=== PATIENT | male | born 1995 | race Caucasian/White ===

== ENCOUNTER 2017-05-11 08:21 | Emergency (ER) | payer SELFPAY ==
[2017-05-11 08:23] VITALS: BP 134/82; PULSE 125; RESP 17; TEMP 37.9; O2SAT 92; BMI 29.0
--- NOTE | 2017-05-11 08:52 | ED.DCSUM_ITS ---
- ER Visit Summary Date of Service: 05/11/17 Chief Complaint: Sore throat History of Present Illness: The patient is a 21 U presenting with 2 weeks of sore throat worse on the right, she was seen at urgent care early on and placed on about a week or 10 days of prednisone, which helped, but when she stopped it less than 1 week ago, the pain gradually has worsened. Had some chills and a mild nonproductive cough, some sinus pressure/pain and some congestion, but mostly throat pain and trouble swallowing because of that. No vomiting. No shortness of breath. Physical Examination: No acute distress. No stridor. Lungs clear. Fever of 100.2 and mildly tachycardic, otherwise vital signs are normal. Posterior oropharynx is erythematous, there is some mild tonsillar swelling on the right, without an obvious abscess. No exudates. Anterior tender right sub-mandibular lymphadenopathy, TMs are normal bilaterally. No posterior lymphadenopathy. No purulent nasal discharge. Mild frontal sinus tenderness. Test Results: n/a Emergency Department Course and Treatment: Will prescribe Augmentin and recommend close outpatient follow-up with ENT if not improving. I do not see anything amenable to aspiration at this time, but it is likely peritonsillar cellulitis, she was on no antibiotic before, will prescribe her Augmentin. Treatment Plan: As above. Ibuprofen given here. Disposition: Discharge home Impression: Peritonsillar cellulitis This note was generated with [employer] dictation software. It may contain incorrect words, spelling, and punctuation that were not noted in review of the chart prior to signing ED Disposition - Plan for ED Patient: Disposition: Home or Assisted Living Chief Complaint: Sore Throat Instructions: ED Peritonsillar Abscess Prescriptions: Amox/Clavulanate Tablet [Augmentin Tablet] 875 mg PO Q12H #20 tab Referrals: Mitchel Spring MD [STAFF PHYSICIAN] - 3-5 Days if not improving
== END 2017-05-11 09:34 | disposition home or self-care (01) ==
PROVIDERS: Emergency Provider Emergency Medicine
DX: J36 Peritonsillar abscess (principal)
CPT/HCPCS: 99282

== ENCOUNTER 2017-05-20 19:35 | Emergency (ER) | payer SELFPAY ==
[2017-05-20 19:36] VITALS: BP 146/56; PULSE 121; RESP 15; TEMP 36.5; BMI 28.2
--- NOTE | 2017-05-20 22:33 | ED.VISSUMM ---
- ER Visit Summary Date of Service: 05/20/17 Chief Complaint: Rash History of Present Illness: The patient is a 21 M presenting with rash ?2 days. Of note patient identifies as a female. She was started on Augmentin on 05/12/2017 for concern for peritonsillar abscess. The symptoms have improved. She has no difficulty swallowing. 2 days ago she noticed a rash on her upper extremities and trunk. No difficulty breathing. She is on Augmentin and has never taken this medication in the past. No other new medications, foods, known cause. Denies fever or other complaints. Physical Examination: Vitals are stable. Patient is afebrile. Alert no acute distress. HEENT exam is unremarkable. Tonsils are symmetric. No exudate. Uvula midline Neck is supple. Lungs are clear and equal bilaterally. Heart is regular rate and rhythm. Abdomen is soft nontender nondistended. Extremities are unremarkable. Skin is warm and dry. Diffuse maculopapular rash. No intraoral lesions No focal neurologic deficit. Remainder of exam is unremarkable. Emergency Department Course and Treatment: She was given Solu-Medrol, Benadryl IV. She has improvement of her symptoms. She is resting comfortably. She is advised to discontinue Augmentin. Advised to follow-up with Dr. Alberts payroll consultant for no doc. She is given a prescription for prednisone. Advised return to ED if worsening complaints. Disposition: Discharge home Impression: Allergic reaction This note was generated with [employer] dictation software. It may contain incorrect words, spelling, and punctuation that were not noted in review of the chart prior to signing ED Disposition - Plan for ED Patient: Chief Complaint: Allergic Reaction Referrals: Care Physician,No Primary [Primary Care Provider] -
[2017-05-20] MEDS: DiphenhydrAMINE 50 MG/ML Syringe 25 MG IV (22:43)
[2017-05-20] MEDS: MethylPREDNISolone 125 MG/2 ML Vial IV (22:43)
--- NOTE | 2017-05-20 23:31 | ED.DEP ---
ED Disposition - Plan for ED Patient: Chief Complaint: Allergic Reaction Instructions: ED Drug React Allergic Prescriptions: Prednisone [Deltasone] 40 mg PO DAILY #10 tablet Referrals: Care Physician,No Primary [Primary Care Provider] - Mitchel Alberts MD [STAFF PHYSICIAN] -
[2017-05-20 23:42] VITALS: BP 104/62; RESP 16
== END 2017-05-20 23:43 | disposition home or self-care (01) ==
LOC: ED 23:35
PROVIDERS: Emergency Provider Emergency Medicine
DX: T78.40XA Allergy, unspecified, initial encounter (principal); R21 Rash and other nonspecific skin eruption
CPT/HCPCS: 96374; 96375; 99284; A4216

== ENCOUNTER 2017-06-27 05:22 | Emergency (ER) | payer SELFPAY ==
[2017-06-27 05:24] VITALS: BP 130/54; PULSE 105; RESP 18; TEMP 36.5; O2SAT 98; BMI 28.2
--- NOTE | 2017-06-27 05:30 | ED.VISSUMM ---
- ER Visit Summary Date of Service: 06/27/17 Chief Complaint: Frostbite History of Present Illness: The patient is a 21 M who presents with complaint of frostbite to the hands. Patient states he initially was in a car taking a ride to get home, but then had to walk the rest of the way for couple hours. He had his hands in his pockets but thought his hands had gotten cold and red. He complained of tingling in the fingers. No other complaints. No complaints of any foot or facial symptoms. Physical Examination: Vital signs: afebrile, hemodynamically stable, no hypoxia on room air General: well nourished, well developed, in no distress Skin: warm, dry, no rash, no pallor; ears, nose, fingers and toes are all warm, pink with brisk capillary refill HEENT: normocephalic and atraumatic; PERRL, EOMI, moist mucous membranes Cardiovascular: regular rate and rhythm without murmurs, no peripheral edema, 2+ pulses all distal extremities Respiratory: No increased work of breathing, lungs are clear to auscultation bilaterally, no rales, rhonchi or wheezing Abdominal: Abdomen is soft, nontender with normoactive bowel sounds, no guarding or rebound, no masses MSK: Moves all extremities, no deformities, normal strength Neuro: Awake and alert, oriented ?4. No facial droop, sensation and motor function intact and symmetric Test Results: [] Emergency Department Course and Treatment: Patient presents complaining of frostbite. Patient has good perfusion to all extremities with neurovascular function intact in the fingers and toes, and extremities are warm. There is no sign of any cold weather injury. He does not appear uncomfortable at all. Was counseled on appropriate clothing for cold weather. Discharged home. Treatment Plan: [] Disposition: [] Impression: Cold hands, resolved; normal medical screening exam This note was generated with [employer] dictation software. It may contain incorrect words, spelling, and punctuation that were not noted in review of the chart prior to signing ED Disposition - Plan for ED Patient: Chief Complaint: Upper Extremity Injury Instructions: ED Hypothermia Prevention Referrals: Care Physician,No Primary [Primary Care Provider] - Clint Harvey MD [[facility]] - Additional Instructions: Your examination shows no concerning findings for cold injury. Please make sure you where appropriate cold weather clothing, including coat, scarf, hat, gloves, socks and boots if you are going to be outside for prolonged periods of time when the weather is cold.
[2017-06-27 05:37] VITALS: BP 130/54; PULSE 105; RESP 18; O2SAT 98
== END 2017-06-27 05:38 | disposition home or self-care (01) ==
PROVIDERS: Emergency Provider Emergency Medicine
DX: T69.8XXA Other specified effects of reduced temperature, initial encounter (principal)
CPT/HCPCS: 99284

== ENCOUNTER 2017-07-25 17:28 | Emergency (ER) | payer SELFPAY ==
[2017-07-25 17:29] VITALS: BP 123/71; PULSE 98; RESP 18; TEMP 36.7; O2SAT 95; BMI 27.9
--- NOTE | 2017-07-25 17:47 | ED.VISSUMM ---
- ER Visit Summary Date of Service: 07/25/17 Chief Complaint: Left-sided abdominal pain History of Present Illness: The patient is a 21 M who is transgender presents with left-sided abdominal pain that he localizes to the left lower quadrant. He reports 5 mushy soft stools yesterday and 2 today. Denies blood or mucus in the stool. Denies maroon or black stool. He denies any vomiting. He does report frequency and there is a family history diabetes. He denies urgency, hematuria or dysuria. He denies any testicular pain or penile discharge. He denies flank pain. There is no history of renal ureterolithiasis. There is no history of trauma. He denies fever, chills night sweats. Please read written note for complete detail. Physical Examination: Vital signs are remarkable for elevated blood pressure of 123/71. HEENT exam is unremarkable. Heart is regular without murmur, gallop or rub. S1 and S2 are normal. Lungs are clear to auscultation with good movement of air bilaterally. Abdomen is soft with tenderness left side without guarding or rebound tenderness. Bowel sounds are present slightly diminished. There is no CVA tenderness noted. There is no evidence of abdominal wall trauma or skin lesions. Lower extremity exam is unremarkable. Test Results: White count is normal. PTT is 117. This was obtained because of complaint of frequency and multiple family members with history diabetes. Emergency Department Course and Treatment: Will treat with Bentyl since he describes the pain as crampy and sharp. A CBC was obtained. Treatment Plan: Appropriate home-going instruction and prescription for Bentyl Disposition: Discharged to home Impression: Left-sided abdominal pain with diarrhea This note was generated with [employer] dictation software. It may contain incorrect words, spelling, and punctuation that were not noted in review of the chart prior to signing ED Disposition - Plan for ED Patient: Disposition: Home or Assisted Living Chief Complaint: Abd Pain Instructions: ED Diarrhea Viral Prescriptions: Dicyclomine HCl [Bentyl] 20 mg PO TIDAC #20 cap Referrals: Care Physician,No Primary [Primary Care Provider] - Derrick Moreira MD [STAFF PHYSICIAN] - Additional Instructions: If you do not improve in 1-2 days follow-up with Dr. Derrick Moreira who you referred to since she did not have a primary care physician.
--- NOTE | 2017-07-25 17:50 | ED.DCSUM_ITS ---
- ER Visit Summary Date of Service: 07/25/17 Chief Complaint: Left-sided abdominal pain History of Present Illness: The patient is a 21 M who is transgender presents with left-sided abdominal pain that he localizes to the left lower quadrant. He reports 5 mushy soft stools yesterday and 2 today. Denies blood or mucus in the stool. Denies maroon or black stool. He denies any vomiting. He does report frequency and there is a family history diabetes. He denies urgency, hematuria or dysuria. He denies any testicular pain or penile discharge. He denies flank pain. There is no history of renal ureterolithiasis. There is no history of trauma. He denies fever, chills night sweats. Please read written note for complete detail. Physical Examination: Vital signs are remarkable for elevated blood pressure of 123/71. HEENT exam is unremarkable. Heart is regular without murmur, gallop or rub. S1 and S2 are normal. Lungs are clear to auscultation with good movement of air bilaterally. Abdomen is soft with tenderness left side without guarding or rebound tenderness. Bowel sounds are present slightly diminished. There is no CVA tenderness noted. There is no evidence of abdominal wall trauma or skin lesions. Lower extremity exam is unremarkable. Test Results: White count is normal. PTT is 117. This was obtained because of complaint of frequency and multiple family members with history diabetes. Emergency Department Course and Treatment: Will treat with Bentyl since he describes the pain as crampy and sharp. A CBC was obtained. Treatment Plan: Appropriate home-going instruction and prescription for Bentyl Disposition: Discharged to home Impression: Left-sided abdominal pain with diarrhea This note was generated with [employer] dictation software. It may contain incorrect words, spelling, and punctuation that were not noted in review of the chart prior to signing ED Disposition - Plan for ED Patient: Disposition: Home or Assisted Living Chief Complaint: Abd Pain Instructions: ED Diarrhea Viral Prescriptions: Dicyclomine HCl [Bentyl] 20 mg PO TIDAC #20 cap Referrals: Care Physician,No Primary [Primary Care Provider] - Derrick oMreira MD [STAFF PHYSICIAN] - Additional Instructions: If you do not improve in 1-2 days follow-up with Dr. Derrick Moreira who you referred to since she did not have a primary care physician.
[2017-07-25] MEDS: Dicyclomine 10 MG Capsule 20 MG PO (18:05)
[2017-07-25 18:10] LABS: Bedside Glucose 117 mg/dL (70-110)
[2017-07-25 19:03] LABS: Absolute Lymphocyte Count 1.25 X10^3/ul (0.83-4.51); Absolute Neutrophil Count 5.5 X10^3/uL (2.0-7.7); Basophil# 0.02 X10^3/uL; Basophil% 0.3 % (0-1); Eosinophil# 0.22 X10^3/uL; Eosinophils% 2.9 % (0-5); Hematocrit 40.4 % (40-54); Hemoglobin 13.5 g/dl (13.0-16.5); Lymphocyte # 1.25 X10^3/ul (4.0); Lymphocyte % 16.4 % (19-41); Mean Corp Hgb Conc 33.4 g/gl (32-36); Mean Corpuscular Hgb 28.4 pg (27.0-32.0); Mean Corpuscular Volume 85.1 fL (80-94); Mean Platelet Vol. 9.5 fl (6.2-12.0); Monocyte# 0.63 X10^3/uL; Monocyte% 8.2 % (0-10); Neutrophil # 5.51 X10^3/uL (2.7-7.7); Neutrophil % 72.1 % (47-70); Platelet Count 282 K/mm3 (150-450); RBC Distribution Width SD 40.3 fl (35.1-43.9); Red Blood Count 4.75 M/mm3 (4.6-6.2); White Blood Count 7.6 K/mm3 (4.4-11.0)
[2017-07-25 19:04] LABS: POSITIVE COUNT NO; POSITIVE DIFFERENTIAL NO; POSITIVE MORPHOLOGY NO
[2017-07-25 19:17] VITALS: BP 122/68; PULSE 78; RESP 16; O2SAT 98
== END 2017-07-25 19:22 | disposition home or self-care (01) ==
PROVIDERS: Emergency Provider Emergency Medicine
DX: R10.9 Unspecified abdominal pain (principal); R19.7 Diarrhea, unspecified
CPT/HCPCS: 82962; 85025; 99283

== ENCOUNTER 2017-11-16 20:01 | Emergency (ER) | payer MEDICAID, SELFPAY ==
[2017-11-16 20:01] VITALS: BP 116/64; PULSE 95; RESP 16; TEMP 36.8; O2SAT 95; BMI 28.1
--- NOTE | 2017-11-16 20:19 | ED.VISSUMM ---
- ER Visit Summary Date of Service: 11/16/17 Chief Complaint: Suicidal thoughts History of Present Illness: The patient is a 21 M who is transgender presents to the emergency department with suicidal thoughts. Patient was recently diagnosed with schizophrenia. He follows up the counseling center. He does have a history of depression. He was on a few psych medications, but has not taken them in over a year. He has not seen a psychiatrist yet to start any medical therapy. He states that over the past 5 days, he has had intrusive voices which are telling to kill himself. He states that he would get a knife and cut his wrists. He has had prior attempt 5 years ago. He does admit to occasional alcohol use and marijuana use but denies any other substance abuse. He denies any current attempt. Physical Examination: Vital signs reviewed General: Well-nourished, well-developed Head: Normocephalic, atraumatic Eyes: Pupils equal and reactive, extraocular muscles intact Neck, supple, no lymphadenopathy Heart: Regular rate and rhythm Respiratory: No distress, clear bilaterally Abdomen: Soft, nontender, nondistended, no peritoneal signs Back: Nontender Extremities: Nontender, no edema, no cords Skin: Normal color no rash Neuro: Alert and oriented, no focal or lateralizing deficits Test Results: [] Emergency Department Course and Treatment: The patient presents with suicidal thoughts. He does have a history of prior attempt. Screening labs were obtained were unremarkable. Tox is positive for marijuana which he did admit to. Patient will undergo crisis evaluation. Disposition is currently pending. Treatment Plan: [] Disposition: Pending Impression: 1. Suicidal ideation This note was generated with [employer] dictation software. It may contain incorrect words, spelling, and punctuation that were not noted in review of the chart prior to signing ED Disposition - Plan for ED Patient: Chief Complaint: Suicidal Referrals: Care Physician,No Primary [Primary Care Provider] -
[2017-11-16 20:32] LABS: Absolute Lymphocyte Count 2.33 X10^3/ul (0.83-4.51); Absolute Neutrophil Count 4.3 X10^3/uL (2.0-7.7); Basophil# 0.02 X10^3/uL; Basophil% 0.3 % (0-1); Eosinophil# 0.17 X10^3/uL; Eosinophils% 2.4 % (0-5); Hematocrit 40.9 % (40-54); Hemoglobin 13.5 g/dl (13.0-16.5); Lymphocyte # 2.33 X10^3/ul (4.0); Lymphocyte % 32.2 % (19-41); Mean Corpuscular Hgb 28.5 pg (27.0-32.0); Mean Corpuscular Volume 86.3 fL (80-94); Mean Platelet Vol. 9.7 fl (6.2-12.0); Monocyte# 0.39 X10^3/uL; Monocyte% 5.4 % (0-10); Neutrophil % 59.4 % (47-70); Platelet Count 279 K/mm3 (150-450); RBC Distribution Width CV 12.6 % (11.6-14.6); Red Blood Count 4.74 M/mm3 (4.6-6.2); White Blood Count 7.2 K/mm3 (4.4-11.0)
[2017-11-16 20:34] LABS: POSITIVE COUNT NO; POSITIVE DIFFERENTIAL NO; POSITIVE MORPHOLOGY NO
[2017-11-16 20:44] LABS: Anion Gap 10 (5-15); BUN 21 mg/dL (7-18); BUN/Creat Ratio 17.1 RATIO (10-20); Calcium,Total 8.8 mg/dL (8.5-10.1); Chloride 106 mmol/L (98-107); Creatinine, Serum 1.23 mg/dL (0.70-1.30); EST Glomerular Filtration Rate 80 mL/min (>60); Est Glom Filt Rate - Afr Amer 97 mL/min (>60); Estimated Creatinine Clearance 93.46 ml/min; Glucose 99 mg/dL (74-106); Potassium 4.1 mmol/L (3.5-5.1); Sodium Level 140 mmol/L (136-145)
[2017-11-16 21:13] LABS: Amphetamine Urine VISTA NEGATIVE (<1000 ng/mL); Barbiturate Urine VISTA NEGATIVE (< 200 ng/mL); Benzodiazepine Urine VISTA NEGATIVE (< 200 ng/mL); Cocaine Urine VISTA NEGATIVE (< 300 ng/mL); Ecstacy Urine VISTA NEGATIVE (< 500 ng/mL); Methadone Urine VISTA NEGATIVE (< 300 ng/mL); PCP Urine VISTA NEGATIVE (< 25 ng/mL); THC Urine VISTA POSITIVE (< 50 ng/mL); Vista UDS pH Range 5
[2017-11-16 22:02] VITALS: PULSE 78; RESP 16; O2SAT 98
[2017-11-17] VITALS (9 sets, daily range): BP systolic 92–111; BP diastolic 53–62; PULSE 51–58; RESP 14–16; TEMP 36.8; O2SAT 97–99
== END 2017-11-17 10:13 ==
PROVIDERS: Emergency Provider Emergency Medicine
DX: R45.851 Suicidal ideations (principal); F20.9 Schizophrenia, unspecified; F32.9 Major depressive disorder, single episode, unspecified; Z72.0 Tobacco use
CPT/HCPCS: 36415; 80048; 80307; 80320; 85025; 99284; G0480

== ENCOUNTER 2018-01-14 17:20 | Emergency (ER) | payer MEDICAID, SELFPAY ==
[2018-01-14 17:22] VITALS: BP 121/71; PULSE 97; RESP 14; TEMP 36.6; O2SAT 98; BMI 30.5
--- NOTE | 2018-01-14 17:44 | ED.DCSUM_ITS ---
- ER Visit Summary Date of Service: 01/14/18 Chief Complaint: Atraumatic left ankle pain History of Present Illness: The patient is a 22 M S male history of underlying psychiatric disorder. Prior appendectomy. 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 Today when he got home he had swelling to the left lateral aspect of his left ankle and discomfort. No fall no trauma. No prior ankle history or prior ankle surgery. No history of DVT or PE. He is on no hormone therapy. He has had no recent travel surgery or mobilization. He denies calf pain also denies shortness of breath or chest pain. No hemoptysis. Physical Examination: Very well-appearing young male dressed as a female. Vital signs stable. Afebrile. Pulse ox 98% on room air no signs of hypoxia. No distress. H EENT exam unremarkable. Neck nontender no lymphadenopathy. Lungs clear to auscultation bilaterally. Heart regular rhythm no murmur. Abdomen soft nontender. He is moving all 4 extremities. Neurovascular intact. His left lateral malleolus left ankle is mildly tender mildly swollen. He has normal dorsi plantarflexion. Achilles tendon is intact. Medial malleolus is nontender. Foot is nontender. With a normal dorsalis pedis pulse. Normal cap refill. Normal touch sensation. No bony deformity. The foot itself is nonswollen. Calf is nontender. No edema. Knee and left hip are nontender. Normal range of motion. Neurologic exam is unremarkable. Test Results: Left ankle x-ray 3 views no acute process read by myself. Emergency Department Course and Treatment: Patient doing well on repeat exam. Treatment Plan: Ice and elevate. Motrin for pain and inflammation. Follow-up if not improving. Disposition: Discharge Impression: Left ankle sprain This note was generated with [employer] dictation software. It may contain incorrect words, spelling, and punctuation that were not noted in review of the chart prior to signing ED Disposition - Plan for ED Patient: Chief Complaint: Lower Extremity Injury Referrals: Care Physician,No Primary [Primary Care Provider] -
--- NOTE | 2018-01-14 17:50 | RAD_ITS ---
STUDY: X-RAY - LEFT ANKLE REASON FOR EXAM: Male, 22 years old. Pain, no injury TECHNIQUE: 3 view(s) of the ankle. COMPARISON: None. FINDINGS: Normal visualized distal tibia and fibula. Normal medial and lateral malleoli. Normal tibiotalar articulation and ankle mortise. Normal visualized talus and calcaneus. The visualized subtalar, talonavicular, calcaneocuboid and tarsal articulations are normal. There is soft tissue swelling over the lateral malleolus. RAD/Ankle min 3 Views IMPRESSION: The osseous structures and articular surfaces appear within normal limits. There is soft tissue swelling over the lateral malleolus. Electronically Signed: Kalpesh Stanton MD at 18:37 EDT , Service support ,
--- NOTE | 2018-01-14 18:08 | ED.DEP ---
ED Disposition - Plan for ED Patient: Disposition: Home or Assisted Living Chief Complaint: Lower Extremity Injury Instructions: ED Sprain Ankle W X Ray Referrals: Mitchel Alberts MD [STAFF PHYSICIAN] - 1 Week if not improving Additional Instructions: Ice and elevate. Motrin for pain and swelling. Follow-up with not improving. Return if a lot worse.
[2018-01-14 18:27] VITALS: PULSE 78; RESP 16; O2SAT 98
== END 2018-01-14 18:29 | disposition home or self-care (01) ==
PROVIDERS: Emergency Provider Emergency Medicine
DX: S93.402A Sprain of unspecified ligament of left ankle, initial encounter (principal); F99 Mental disorder, not otherwise specified; Z72.0 Tobacco use; Z79.899 Other long term (current) drug therapy; X58.XXXA Exposure to other specified factors, initial encounter; Y93.89 Activity, other specified; Y92.89 Other specified places as the place of occurrence of the external cause; Y99.8 Other external cause status
CPT/HCPCS: 73610; 99282

== ENCOUNTER 2018-01-19 09:57 | Emergency (ER) | payer MEDICAID, SELFPAY ==
[2018-01-19 09:59] VITALS: BP 122/74; PULSE 96; RESP 18; TEMP 37.1; O2SAT 96; BMI 30.4
--- NOTE | 2018-01-19 10:18 | ED.DCSUM_ITS ---
- ER Visit Summary Date of Service: 01/19/18 Chief Complaint: Ankle pain, shoulder pain out of psychiatric medications History of Present Illness: The patient is a 22 M who presents after an ankle sprain he was seen in the ED had an unremarkable x-ray. A week later he still has tenderness to his left ankle. He has been walking on it quite a bit at work. He also has right shoulder pain also from overuse at work. No obvious trauma. He ran out of his Abilify and Wellbutrin about 3 or 4 days ago. He has an appointment tomorrow for refill of his medications. Physical Examination: Not appear in acute distress. Moist mucous membranes, no obvious facial deformity No C-spine tenderness supple neck. Regular rate and rhythm without any obvious murmurs Clear lungs bilaterally speaking in full sentences without any obvious respiratory distress. Biological female with breasts. Abdomen soft and nontender no guarding or rebound There is tenderness over the left lateral malleolus, however full range of motion and is able to bear weight. Patient also has some right shoulder ten derness worse with abduction greater than 90 degrees. Full range of motion however and otherwise normal exam. Skin does not show any obvious rashes or lesions, no trauma. Alert oriented ?3 with no gross focal deficit Emergency Department Course and Treatment: Patient has tendinitis and an ankle sprain, his symptoms may be worse by the fact that he is withdrawing from Wellbutrin and Abilify. I will give him 1 dose in the emergency department and he has an appointment tomorrow. I will also place him on NSAIDs. Discharge stable condition Impression: Tendinitis right shoulder Left ankle sprain follow-up Medication refill This note was generated with [employer] dictation software. It may contain incorrect words, spelling, and punctuation that were not noted in review of the chart prior to signing ED Disposition - Plan for ED Patient: Disposition: Home or Assisted Living Chief Complaint: Other, Pain/Inj Instructions: ED Tendinitis Rotator Cuff, ED Sprain Ankle No X Ray Prescriptions: Naproxen [Naprosyn] 500 mg PO BID PRN #20 tab Referrals: Care Physician,No Primary [Primary Care Provider] - 3-5 Days
[2018-01-19] MEDS: buPROPion (SR) 100 MG TABLET.SA 200 MG PO (10:31)
[2018-01-19] MEDS: ARIPiprazole 5 MG Tablet PO (10:31)
[2018-01-19 10:46] VITALS: RESP 18; O2SAT 96
== END 2018-01-19 10:46 | disposition home or self-care (01) ==
PROVIDERS: Emergency Provider Emergency Medicine
DX: M75.91 Shoulder lesion, unspecified, right shoulder (principal); S93.402D Sprain of unspecified ligament of left ankle, subsequent encounter; Z76.0 Encounter for issue of repeat prescription; Z79.899 Other long term (current) drug therapy; X58.XXXD Exposure to other specified factors, subsequent encounter
CPT/HCPCS: 99284

== ENCOUNTER 2018-07-31 01:13 | Emergency (ER) | payer MEDICAID, SELFPAY ==
[2018-07-31 01:15] VITALS: BP 125/71; PULSE 105; RESP 13; TEMP 36.7; O2SAT 98; BMI 28.0
--- NOTE | 2018-07-31 01:22 | RAD_ITS ---
STUDY: X-RAY - RIGHT WRIST REASON FOR EXAM: Male, 22 years old. Right-sided wrist pain after punching a telephone pole. TECHNIQUE: 3 view(s) of the wrist were obtained. COMPARISON: Radiographs of the right hand dated July 31, 2018. FINDINGS: Normal visualized distal radius and ulna. Normal radiocarpal articulation. There is a negative ulnar variance. Normal carpal bones. Normal carpal articulations. Normal carpometacarpal articulation of the thumb. Normal second through fifth carpometacarpal articulations. Normal visualized metacarpal bones. There is mild soft tissue swelling. There is deformity of the fifth metacarpal probably related to old fracture. RAD/Wrist min 3 Views IMPRESSION: No definite evidence for acute fracture. If there is still clinical concern for acute fracture, follow-up radiographs in 7-10 days maybe helpful in evaluating a healing radiographically occult fracture. Electronically Signed: Tia Burns MD at 1:55 EDT , Service support ,
--- NOTE | 2018-07-31 01:23 | RAD_ITS ---
STUDY: X-RAY - RIGHT HAND REASON FOR EXAM: Male, 22 years old. Right-sided hand pain after punching a pole. TECHNIQUE: 3 view(s) of the hand. COMPARISON: Radiographs of the right wrist dated July 31, 2018. FINDINGS: Normal radiocarpal articulation. There is a negative ulnar variant of the distal radioulnar articulation. Normal visualized carpal bones. Normal carpal articulations Normal carpometacarpal articulation of the thumb. Normal second through fifth carpometacarpal joints. There is deformity of the fifth metacarpal probably related to old fracture. Normal metacarpophalangeal joint of the thumb. Normal interphalangeal joint of the thumb. Normal proximal and distal phalanges of the thumb. Normal metacarpophalangeal joints of the second through fifth fingers. Normal proximal and distal interphalangeal joints of the second through fifth fingers. Normal phalanges of the second through fifth fingers. There is soft tissue swelling. RAD/Hand Min 3 Views IMPRESSION: 1. No evidence for acute fracture. 2. Probably old fracture of the fifth metacarpal. 3. Soft tissue swelling. 4. If there is still clinical concern for acute fracture, follow-up radiographs in 7-10 days maybe helpful in evaluating a healing radiographically occult fracture. Electronically Signed: Tia Burns MD at 1:57 EDT , Service support ,
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
[2018-07-31] MEDS: Naproxen 500 MG Tablet PO (01:33)
== END 2018-07-31 02:19 | disposition home or self-care (01) ==
PROVIDERS: Emergency Provider Emergency Medicine
DX: S63.501A Unspecified sprain of right wrist, initial encounter (principal); S60.221A Contusion of right hand, initial encounter; S60.511A Abrasion of right hand, initial encounter; W22.8XXA Striking against or struck by other objects, initial encounter; Y93.9 Activity, unspecified; Y92.9 Unspecified place or not applicable
CPT/HCPCS: 73110; 73130; 99283

== ENCOUNTER 2019-02-17 21:39 | Emergency (ER) | payer SELFPAY ==
[2019-02-17 21:41] VITALS: BP 122/74; PULSE 99; RESP 18; TEMP 36.4; O2SAT 97; BMI 25.7
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
== END 2019-02-17 22:32 | disposition home or self-care (01) ==
PROVIDERS: Emergency Provider Emergency Medicine; Family Provider Nurse Practitioner Primary Care; PCP Nurse Practitioner Primary Care
DX: S50.812A Abrasion of left forearm, initial encounter (principal); W45.8XXA Other foreign body or object entering through skin, initial encounter; Y93.9 Activity, unspecified; Y92.79 Other farm location as the place of occurrence of the external cause; Y99.9 Unspecified external cause status; Z88.1 Allergy status to other antibiotic agents; Z88.0 Allergy status to penicillin; F17.200 Nicotine dependence, unspecified, uncomplicated
CPT/HCPCS: 99282

== ENCOUNTER 2019-03-21 12:56 | Emergency (ER) | payer MEDICAID, SELFPAY ==
[2019-03-21 12:57] VITALS: BP 104/57; PULSE 77; RESP 18; TEMP 36.6; O2SAT 98; BMI 28.8
--- NOTE | 2019-03-21 13:16 | RAD_ITS ---
STUDY: X-RAY - RIGHT SHOULDER REASON FOR EXAM: Male, 23 years old. SHOULDER PAIN AFTER BOWLING TECHNIQUE: 3 view(s) of the shoulder. COMPARISON: None. FINDINGS: Normal glenohumeral articulation. Normal acromioclavicular joint. Normal acromion. Normal humeral head and visualized proximal humerus. The soft tissue structures are unremarkable. Normal visualized pulmonary apex. RAD/Shoulder min 2 Views IMPRESSION: Normal x-ray examination of the shoulder. Electronically Signed: Markus Lowery MD (Bro[place]) at 13:52 EST , Service support ,
[2019-03-21] MEDS: Naproxen 500 MG Tablet PO (13:28)
--- NOTE | 2019-03-21 13:48 | ED.VIS.GEN ---
History of Present Illness Chief Complaint: Upper Extremity Injury Informant: Patient Onset: Weeks - Onset 2 weeks ago Context: Sudden Onset Timing: Continuous, Waxes and wanes Quality: Worse with abduction Location: Right shoulder region Current Severity: Mild Maximum Severity: Severe Worsened by: Movement especially abduction past 90 degrees Relieved by: Rest Associated Symptoms: No associated symptoms Narrative: Patient is a 23-year-old [id number] male who presents with atraumatic right shoulder pain for the past 2 weeks. Movement especially abduction causes increased pain. He denies cardiac respiratory symptoms. He denies paresthesia, anesthesia or motor weakness. There is no prior history of trauma to the shoulder. There is no history of autoimmune disorder. Patient states he has not taken anything for the pain. Prior similar symptoms: No Recent Illness/Hospitalization: No - Past Medical History (1) No significant past medical history Status: Acute Past Medical History - Allergies and Home Meds Allergies/Adverse Reactions: Allergies amoxicillin [From Augmentin] Allergy (Verified 03/21/19 13:00) Rash clavulanic acid [From Augmentin] Allergy (Verified 03/21/19 13:00) Rash Primary Care Physician: Mercedes Cline NP-C [Primary Care Provider] - Prior records reviewed: No Past Medical History: None Surgical History: no surgical history Lives: Alone Smoking Status: Current every day smoker Drugs: None Review of Systems General: Denies: Chills, Fever, Malaise, Sweats Cardiovascular: Denies: Chest pain, Palpitations Respiratory: Denies: Dyspnea, Cough, Dyspnea on exertion Gastrointestinal: Denies: Nausea, Vomiting Musculoskeletal: Reports: Extremity Pain. Denies: Myalgias, Arthralgias, Neck pain, Back pain, Swelling Skin: Denies: Rash, Wounds Neurological: Denies: Weakness, Parasthesia, Numbness Hematologic: Denies: Easy bruising, Easy bleeding Physical Exam Vital Signs/Narrative: Vital Signs Temp Pulse Resp BP Pulse Ox 03/21/19 12:57 97.8 F 77 18 104/57 L 98 Inital Vital Signs reviewed: Yes General: Well nourished, Well developed, No Acute Distress Head: Normocephalic, Atraumatic Eyes: Perrl, EOMI. Negative for: Pale conjunctiva, Scleral icterus Cardiovascular: Regular rate, Regular rhythm, No murmurs, Normal S1, Normal S2 Respiratory: No distress, CTA bilaterally, Chest nontender Back: Nontender, Normal Inspection Extremities: No edema, - - There is pain palpation of the right shoulder. Abduction past 90 degrees causes significant discomfort. Axillary, median, radial and ulnar function intact. Biceps, brachialis and triceps reflex are 2+. Radial pulses palpable. Deep tendon reflex and pulse is symmetric.. Negative for: Nontender Skin: Normal color, No rash, No Trauma. Negative for: Cyanosis, Diaphoresis, Jaundice, - Neurological: Alert, Oriented x3, Cranial nerves II-XII grossly intact, Normal Strength, Normal Sensation, Normal DTR Psychological: Normal affect Diagnostic/Tx/Re-eval Chest X-Ray - ED: Read by ED Physician, - - View x-ray of the right shoulder was obtained. There is no evidence of fracture, subluxation or dislocation. There is no calcification supraspinatus tendon. There was no arthritic changes noted. Interpreted at 1346 03/21/19 13:16 Shoulder min 2 Views [RAD] Stat - Medical Decision Making There was obtained to evaluate for occult injury, supraspinatus calcification. If no abnormality noted patient will be treated for impingement syndrome. There is no contraindication to NSAIDs. ED Disposition - Plan for ED Patient: Disposition: Home or Assisted Living Diagnosis: Impingement syndrome of right shoulder Instructions: Shoulder Impingement Syndrome Prescriptions: Naproxen [Naprosyn] 500 mg PO BID #14 tab Transmission Status: Pending to [facility] [place] [facility] Referrals: HarveylogMercedes burgos NP-C [Primary Care Provider] - 3-5 Days if not improving
[2019-03-21 14:05] VITALS: RESP 14
== END 2019-03-21 14:07 | disposition home or self-care (01) ==
PROVIDERS: Emergency Provider Emergency Medicine; Family Provider Nurse Practitioner Primary Care; PCP Nurse Practitioner Primary Care
DX: M75.41 Impingement syndrome of right shoulder (principal); Z88.1 Allergy status to other antibiotic agents; Z88.0 Allergy status to penicillin; F17.200 Nicotine dependence, unspecified, uncomplicated
CPT/HCPCS: 73030; 99283

== ENCOUNTER 2019-06-08 17:55 | Emergency (ER) | payer MEDICAID, SELFPAY ==
[2019-06-08 17:56] VITALS: BP 100/63; PULSE 103; RESP 18; TEMP 36.3; O2SAT 97; BMI 25.3
--- NOTE | 2019-06-08 18:09 | RAD_ITS ---
STUDY: X-RAY CHEST REASON FOR EXAM: Male, 23 years old. FLU LIKE SX X 4 DAYS, COUGH, SOB TECHNIQUE: Frontal and lateral views COMPARISON: None. FINDINGS: The lungs are clear and expanded. There is no demonstrated pleural abnormality. Normal size heart. Normal mediastinum and toni. Normal visualized pulmonary arteries. Normal visualized aortic arch and descending thoracic aorta. Normal visualized thoracic spine. Normal visualized ribs, clavicles, and shoulders. There is no demonstrated abnormality of the visualized soft tissue structures of the upper abdomen. RAD/Chest PA and Lateral IMPRESSION: Normal x-ray examination of the chest. Electronically Signed: Yaron Reddy DO at 19:22 EDT Tel [phone], Service support ,
--- NOTE | 2019-06-08 18:15 | ED.VIS.GEN ---
History of Present Illness Chief Complaint: Shortness of Breath Informant: Patient Onset: Days Context: Gradual Onset Timing: Continuous Current Severity: Moderate Maximum Severity: Moderate Narrative: The patient is a 23-year-old male with no significant medical history the presents to the emergency department cough, shortness of breath, and upper respiratory symptoms. Patient had symptoms since last . She states that a coworker may have had influenza. She states that she has had some dyspnea, myalgias, arthralgias. She has no history of underlying lung disease. She thinks that she is had low-grade fevers. She denies any other systemic complaints. Prior similar symptoms: No Recent Illness/Hospitalization: No Past Medical History - Allergies and Home Meds Allergies/Adverse Reactions: Allergies amoxicillin [From Augmentin] Allergy (Verified 06/08/19 17:56) Rash clavulanic acid [From Augmentin] Allergy (Verified 06/08/19 17:56) Rash Primary Care Physician: Mercedes Cline NP-C [Primary Care Provider] - Prior records reviewed: Yes Past Medical History: None Surgical History: no surgical history Smoking Status: Current every day smoker Review of Systems General: Reports: Chills. Denies: Fever, Sweats Eyes: Denies: Visual changes - bilaterally, Diplopia ENT: Denies: Rhinorrhea, Sore throat Cardiovascular: Denies: Chest pain, Palpitations Respiratory: Reports: Cough. Denies: Dyspnea, Dyspnea on exertion Gastrointestinal: Denies: Abdominal pain, Nausea, Vomiting, Diarrhea, Melena, Hematochezia Genitourinary: Denies: Dysuria, Hematuria, Frequency Musculoskeletal: Denies: Back pain, Extremity Pain Skin: Denies: Rash, Wounds Neurological: Denies: Headache, Weakness, Numbness Physical Exam Vital Signs/Narrative: Vital Signs Temp Pulse Resp BP Pulse Ox 06/08/19 17:56 97.3 F L 103 H 18 100/63 97 Inital Vital Signs reviewed: Yes General: Well nourished, Well developed, No Acute Distress Head: Normocephalic, Atraumatic Eyes: Perrl, EOMI ENT: Moist mucous membranes, No rhinorrhea Neck: Supple, Nontender Cardiovascular: Regular rate, Regular rhythm, No murmurs Respiratory: No distress, CTA bilaterally, Chest nontender Abdomen: Soft, Nontender, Nondistended, Normal bowel sounds Back: Nontender, Normal Inspection Extremities: Nontender, No edema Skin: Normal color, No rash Neurological: Alert, Oriented x3, Cranial nerves II-XII grossly intact, Normal Strength, Normal Sensation Psychological: Normal affect, Normal Mood Diagnostic/Tx/Re-eval Clinical Impression(s) from Imaging Studies Chest X-Ray 06/08/19 18:09 IMPRESSION: Normal x-ray examination of the chest. Electronically Signed: Yaron Reddy DO at 19:22 EDT Tel [phone], Service support , - Medical Decision Making The patient has no fever, hypoxia, or tachypnea. Lungs are clear. Influenza and strep testing were obtained were negative. Chest x-ray shows no evidence of infiltrative process. The symptoms do seem viral in nature. Patient has had symptoms for 5 days now. She is outside the window for Tamiflu. She was counseled on supportive care and will be discharged home. Impression 1. Viral upper respiratory infection ED Disposition - Plan for ED Patient: Instructions: URI, Viral, No Abx (Adult) Referrals: PodlogMercedes burgos NP-C [Primary Care Provider] -
[2019-06-08 20:09] VITALS: PULSE 90; RESP 16; O2SAT 99
== END 2019-06-08 20:14 | disposition home or self-care (01) ==
LOC: ED 19:02
PROVIDERS: Emergency Provider Emergency Medicine; PCP Nurse Practitioner Primary Care
DX: J06.9 Acute upper respiratory infection, unspecified (principal); F17.200 Nicotine dependence, unspecified, uncomplicated
CPT/HCPCS: 71046; 87804; 87880; 99282

== ENCOUNTER 2019-08-13 20:41 | Emergency (ER) | payer MEDICAID, SELFPAY ==
[2019-08-13 20:43] VITALS: BP 146/78; PULSE 90; RESP 18; TEMP 36.8; O2SAT 97; BMI 23.9
[2019-08-13 21:30] VITALS: BP 120/65; PULSE 82; PULSE 93; RESP 16; RESP 18; TEMP 36.8; O2SAT 97
[2019-08-13 21:31] VITALS: O2SAT 97
[2019-08-13 22:00] VITALS: BP 113/69; PULSE 72; RESP 24; TEMP 36.5; O2SAT 97
--- NOTE | 2019-08-13 22:21 | ED.VISSUMM ---
- ER Visit Summary Date of Service: 08/13/19 Chief Complaint: Fever and cough History of Present Illness: The patient is a 23 M who presents with a fever and cough that began today. Patient states he is coughing up some light green sputum. Patient states his fever was up to 101.3 at home. Patient admits to a sore throat. Patient states he feels short of breath at times. Patient states he feels like he has a softball in the middle of his chest. Patient admits to some nausea and vomiting. Patient admits to some neck pain and back pain. Patient also admits to a headache. Patient states he had similar symptoms at the end of May and was tested for COVID at that time. Patient states it was negative. Physical Examination: Vital signs are stable. Patient is afebrile here. Patient is in no acute distress. Oral mucosa is pink and moist. Oropharynx is mildly erythematous. There is no exudate. Neck is supple. Trachea is midline. There is some mild anterior cervical lymphadenopathy. Heart was regular rate and rhythm. Lungs are clear and equal bilaterally. Abdomen is soft. Bowel sounds are normal. There is no tenderness. Extremities are intact. There is no calf tenderness or edema. Cranial nerves II through XII are intact. There are no focal motor or sensory deficits. Test Results: Portable chest x-ray was obtained. There is no acute cardiopulmonary process. This was interpreted by the radiologist and myself. Rapid strep was negative. RSV was negative. Influenza swabs were negative. Emergency Department Course and Treatment: Patient was given IV fluids here. Patient is feeling better on reevaluation. Patient was advised of his findings. Patient was instructed to drink plenty of fluids. Patient was instructed to take Tylenol or ibuprofen as needed for pain or fevers. Patient was instructed to keep to himself for the next 2 weeks. Patient was instructed to follow-up with his primary care physician in 5 to 7 days. Patient understood and was agreeable with the plan. All questions were answered. Disposition: Discharge home Impression: Viral upper respiratory infection This note was generated with [employer] software. It may contain incorrect words, spelling, and punctuation that were not noted in review of the chart prior to signing ED Disposition - Plan for ED Patient: Disposition: Home or Assisted Living Diagnosis: Viral upper respiratory infection Instructions: ED URI Viral Referrals: Harveylogar,Mercedes, [employer] OPERATOR-C [Primary Care Provider] - 5-7 Days
[2019-08-13] MEDS: 0.9% Normal Saline 1,000 ML 1000 ML IV (22:39)
--- NOTE | 2019-08-13 22:40 | RAD_ITS ---
STUDY: X-RAY CHEST REASON FOR EXAM: Male, 23 years old. FEVER, COUGH,SORE THROAT,SOB TECHNIQUE: Single AP portable view of the chest. COMPARISON: 06/08/2019. FINDINGS: The lungs are clear and expanded. There is no demonstrated pleural abnormality. Normal size heart. Normal mediastinum and toni. Normal visualized pulmonary arteries. Normal visualized aortic arch and descending thoracic aorta. Normal visualized thoracic spine. Normal visualized ribs, clavicles, and shoulders. There is no demonstrated abnormality of the visualized soft tissue structures of the upper abdomen. RAD/Chest 1 View (Portable) IMPRESSION: Normal x-ray examination of the chest. Electronically Signed: Victorino Jones MD at 23:10 EDT , Service support ,
[2019-08-13 23:00] VITALS: BP 114/61; PULSE 75; RESP 15; TEMP 37.4; O2SAT 99
[2019-08-13 23:11] VITALS: BP 114/61; PULSE 100; RESP 20; O2SAT 99
[2019-08-14] VITALS: BP 116/60; PULSE 64; RESP 16; TEMP 37.5; O2SAT 100
--- OUTSIDE RECORDS SUMMARY | 2020-01-05 15:45 | XMS RPT_ITS | CCD ---
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 route twice daily. venlafaxine ER (EFFEXOR XR) 75 mg 24 hr capsule Take 75 mg b y mouth once daily. traZODone (DESYREL) 50 mg tablet Take 50 mg by mouth daily a t bedtime. escitalopram oxalate (LEXAPRO) 10 mg tablet Take 1 tablet by mouth once daily. FAMILY HISTORY Problem Relation Age of Onset - other (type II diabetes [Other]) Father - other (MVP [Other]) Maternal Grandmother - Heart Unknown great g-pa Social History Tobacco Use - Smoking status: Passive Smoke Exposure - Never Smoker - Smokeless tobacco: Never Used - Tobacco comment: mom smokes inside Substance Use Topics - Alcohol use: No - Drug use: No ASSESSMENT/PLAN: 1. Cough - ICD9: 786.2, ICD10: R05 (primary diagnosis) - XR CHEST 2V FRONTAL/LAT Impression: no acute process. - MUCINEX 600 MG TABLET, EXTENDED RELEASE - BENZONATATE 100 MG CAPSULE 2. Fever, unspecified fever cause - ICD9: 780.60, ICD10: R50 .9 3. Nausea and vomiting, intractability of vomiting not speci fied, unspecified vomiting type - ICD9: 787.01, ICD10: R11.2 - FLORAJEN BIFIDOBLEND 460 MG (9-1 BILLION CELL) CAPSULE - ONDANSETRON 4 MG DISINTEGRATING TABLET Reviewed red flag SANDS acute abd/dehydration. The patient is instructed to return or seek emergency treatm ent if symptoms become worse or with any acute change in condition. The patient verbalizes understanding and is in agreement wit h plan of care. Yelena Chan CNP cnov on 2019-02-02 CNOV Office Visit (UCWSTR) Normal 02-03-20 19 [facility] GLANCY,ALEXANDER Ferrera ([id number]) 1995 [address] [place] Date Time Provider Department ([id number]) 02/02/19 5:15 PM YELENA CHAN [facility] During your visit today, we recorded the following informati on about you: Temperature Pulse Respiration Blood pressure 97.9 degrees 78/minute 16/minute 104/78 Weight 82.4 kg Yelena Chan APRN.ELMIRA 02/02/2019 7:04 PM Signed Subjective HPI Pt presents with c/o intermittent fevers, runny nose and cou gh x 7 days. tmax 101.0 2 days ago. C/O nausea and vomiting x several days. 2-3 episodes of vomiting/day. Has been pushing fluids. Appetite is poor and any food causes vomiting. Has not taken any OTC medications. Several days ago cough became more frequent, dry, nonproduct david. +coughing fits with occasional wheezing. No hx asthma, smoking. Denies chills, myalgias, dyspnea, increased WOB, abd p ain, diarrhea, UTI sx, recent travel. Exposed to sick contacts at work. Review of Systems Constitutional: Negative for chills and fever. HENT: Positive for congestion. Negative for ear discharge, e ar pain, sinus pain, sore throat and tinnitus. Respiratory: Positive for cough. Negative for sp utum production, shortness of breath and wheezing. Cardiovascular: Negative for chest pain. Gastrointestinal: Positive for nausea and vomiting. Negative for abdominal pain, constipation and diarrhea. Genitourinary: Negative. Musculoskeletal: Negative for myalgias. Skin: Negative for rash. Neurological: Negative for headaches. Objective Physical Exam Constitutional: He is oriented to person, place, and time and well-developed, well-nourished, and in no distress. No distress. HENT: Head: Normocephalic. Right Ear: Hearing, tympanic membrane, external ear and ear canal normal. Left Ear: Hearing, tympanic membrane, external ear and ear c anal normal. Nose: Nose normal. Right sinus exhibits no maxillary s inus tenderness and no frontal sinus tenderness. Le ft sinus exhibits no maxillary sinus tenderness and no frontal sinus tenderness. Mouth/Throat: Uvula is midline, oropharynx is clear and mois t and mucous membranes are normal. No oropharyngeal e xudate, posterior oropharyngeal edema, posterior oropharyngeal erythema or tonsillar abscesses. Eyes: Pupils are equal, round, and react david to light. Conjunctivae are normal. Right eye exhibits no discharge. Left eye exhibits no discha rge. Neck: Neck supple. Cardiovascular: Normal rate, regular rhythm and normal heart sounds. Exam reveals no gallop and no friction rub. No murmur heard. Pulmonary/Chest: Effort normal and breath sounds sangeeta l. No accessory muscle usage. No tachypnea. No resp iratory distress. He has no decreased breath sounds (CTA, good air movement throughout, no cough noted during exam.). He has no wheezes. He has no rhonchi. He has no rales. Abdominal: Soft. Bowel sounds are normal. He exh ibits no distension. There is no tenderness. There is no rigidity, no rebound, no guarding , no CVA tenderness, no tenderness at McBurney's point and negative M urphy's sign. Lymphadenopathy: He has no cervical adenopathy. Neurological: He is alert and oriented to person, place, and time. Skin: Skin is warm and dry. He is not diaphoretic. BP 104/78 Pulse 78 Temp 36.6 ?C (97.9 ?F) (Tympanic) R soy 16 Wt 82.4 kg (181 lb 9.6 oz) SpO2 97% .Patient presents with: Cough: cough and fever x 1 week PAST MEDICAL HISTORY Diagnosis Date - Depression 2012 Dr Nicole and Sosa Tejeda - [facility] - [facility] - PAST MEDICAL HISTORY OF 02/08/10 normal color vision - Right hand fracture Dr Allison PAST SURGICAL HISTORY Procedure Laterality Date - APPENDECTOMY 06/2009 [facility] - PAST SURGICAL HISTORY OF 2005 right forearm laceration ALLERGIES Augmentin [Amoxicillin-Pot Clavulanate] MEDICATIONS bifidobacteri bifid.and longum (FLORAJEN BIFIDOBLEND) 460 mg (9-1 bill.cell) cap Take 1 capsule by mouth once daily. ondansetron orally disintegrating (ZOFRA N ODT) 4 mg disintegrating tablet Take 1 tablet by mouth every 8 hours as needed. guaiFENesin (MUCINEX) 600 mg 12 hr table t Take 2 tablets by mouth twice daily. benzonatate (TESSALON PERLES) 100 mg capsule Take 1 capsule by mouth three times daily as needed. guaiFENesin (MUCINEX) 600 mg 12 hr table t Take 2 tablets by mouth twice daily. ibuprofen (MOTRIN) 600 mg ta blet Take 1 tablet by mouth every 6 hours as needed for Pain. benzonatate (TESSALON PERLES) 100 mg capsule Take 1-2 capsul es tid prn albuterol HFA (PROAIR HFA) 90 mcg/actuation inhaler Inhale 2 Puffs as instructed every 4 hours as needed. albuterol HFA (PROVENTIL HFA, VENTOLIN HFA) 90 m cg/actuation inhaler Inhale 2 Puffs as instructed every 4 hours as needed. hydrocortisone (ANUSOL-HC) 2.5 % rectal cream 1 applicatio n by RECTAL route twice daily. venlafaxine ER (EFFEXOR XR) 75 mg 24 hr capsule Take 75 mg by mouth once daily. traZODone (DESYREL) 50 mg tablet Take 50 mg by mouth daily a t bedtime. escitalopram oxalate (LEXAPRO) 10 mg tab let Take 1 tablet by mouth once daily. FAMILY HISTORY Problem Relation Age of Onset - other (type II diabetes [Other]) Father - other (MVP [Other]) Maternal Grandmother - Heart Unknown great g-pa Social History Tobacco Use - Smoking status: Passive Smoke Exposure - Never Smoker - Smokeless tobacco: Never Used - Tobacco comment: mom smokes inside Substance Use Topics - Alcohol use: No - Drug use: No ASSESSMENT/PLAN: 1. Cough - ICD9: 786.2, ICD10: R05 (primary diagnosis) - XR CHEST 2V FRONTAL/LAT Impression: no acute process. - MUCINEX 600 MG TABLET, EXTENDED RELEASE - BENZONATATE 100 MG CAPSULE 2. Fever, unspecified fever cause - ICD9: 780.60, ICD10: R50 .9 3. Nausea and vomiting, intractability of vomiti ng not specified, unspecified vomiting type - ICD9: 787.01, ICD10: R11.2 - FLORAJEN BIFIDOBLEND 460 MG (9-1 BILLION CELL) CAPSULE - ONDANSETRON 4 MG DISINTEGRATING TABLET Reviewed red flag SANDS acute abd/dehydration. The patient is instructed to return or seek emergency pamela tment if symptoms become worse or with any acute change in condition. The patient verbalizes understanding and is in agreement w ith plan of care. Yelena Chan, BUSINESS MGR Referring Provider: SELF [[id number]] Allergies As of Date: 02/02/2019 Noted Allergy Reaction AUGMENTIN (AMOXICILLIN-POT CLAVUL*07/19/2018 2 - Rash Date Reviewed: 02/02/2019 Reviewed by: Marissa Devries LPN - Fully Assessed Reason for Visit: Cough [28] Cmt: cough and fever x 1 week Primary Visit Diagnosis:Cough [R05] Other Visit Diagnoses:Fever, unspecified fever cause [R50.9] Nausea and vomiting, intractability of vomiting not specified, unspecified vomiting type [R11.2] Order(s):XR CHEST 2V FRONTAL/LAT [[id number]] Order #: [id number] FUTURE bifidobacteri bifid.and longum (FLORAJEN BIFIDOBLEND) 460 mg (9-1 bill.cell) capTake 1 capsule by mouth once daily.Disp: 30 capsuleRfl: 1 ondansetron orally disintegrating (ZOFRAN ODT) 4 mg disinteg rating tabletTake 1 tablet by mouth every 8 hours as needed.Disp: 1 2 tabletRfl: 0 guaiFENesin (MUCINEX) 600 mg 12 hr tabletTake 2 tablets by m outh twice daily.Disp: 30 tabletRfl: 0 benzonatate (TESSALON PERLES) 100 mg capsuleTake 1 capsule b y mouth three times daily as needed.Disp: 40 capsuleRfl: 0 Prescriptions as of 02/02/2019 Sig: FLORAJEN BIFIDOBLEND 460 MG (* Take 1 capsule by mouth once * ONDANSETRON 4 MG DISINTEGRATI* Take 1 tablet by mouth every * MUCINEX 600 MG TABLET, EXTEND* Take 2 tablets by mouth twice * BENZONATATE 100 MG CAPSULE Take 1 capsule by mouth three* GUAIFENESIN ER 600 MG TABLET,* Take 2 tablets by mouth twice * Patient not taking: Reported on 02/02/2019 IBUPROFEN 600 MG TABLET Take 1 tablet by mouth every * Patient not taking: Reported on 02/02/2019 BENZONATATE 100 MG CAPSULE Take 1-2 capsules tid prn Patient not taking: Reported on 02/02/2019 ALBUTEROL SULFATE HFA 90 MCG/* Inhale 2 Puffs as instructed * Patient not taking: Reported on 02/02/2019 ALBUTEROL SULFATE HFA 90 MCG/* Inhale 2 Puffs as instructed * Patient not taking: Reported on 07/19/2018 HYDROCORTISONE 2.5 % TOPICAL * 1 application by RECTAL route * VENLAFAXINE ER 75 MG CAPSULE,* Take 75 mg by mouth once joseph * TRAZODONE 50 MG TABLET Take 50 mg by mouth daily at * ESCITALOPRAM 10 MG TABLET Take 1 tablet by mouth once d* Problem List As Of Date 02/02/2019 Noted Resolved Fracture of fifth metacarpal bone of right hand*04/06/2013 Prescriptions ordered this encounter Disp Refills Start End FLORAJEN BIFIDOBLEND 460 MG (9-1 BUCK* 30 c* 1 02/02/2019 Route: ORAL Sig: Take 1 capsule by mouth once daily. ONDANSETRON 4 MG DISINTEGRATING TABL* 12 t* 0 02/02/2019 Route: ORAL Sig: Take 1 tablet by mouth every 8 hours as needed. MUCINEX 600 MG TABLET, EXTENDED RELE* 30 t* 0 02/02/2019 Route: ORAL Sig: Take 2 tablets by mouth twice daily. BENZONATATE 100 MG CAPSULE 40 c* 0 02/02/2019 Route: ORAL Sig: Take 1 capsule by mouth three times daily as needed. Letter Text Letter Text Encounter Status:Closed by YELENA CHAN CNP on 02/02 xr hand minimum 3 views right on 2018-10-12 XR HAND MINIMUM 3 ORIGINAL Normal 10-12-2018 A [facility] VIEWS RIGHT XR HAND 3 VIEWS RIGHT [facility] ([place]) ([id number]) CLINICAL STATEMENT: Hand pain, injury. COMPARISON: None FINDINGS: No acute fracture or dislocation is identified. The joint spaces are maintained. There is slight bowing deformity of the 5th metacarpal, likely chronic. IMPRESSION: No acute fracture or dislocation. I have personally reviewed t he images of this examination and agree with the resident's findings and interpretation. Interpreted By: Roman Quintana MD Preliminary Report By: Belinda Anguiano MD Electronically Signed By: Roman Quintana MD Dictated Date: 10/12/2018 4:06:10 PM Prelim Date: 10/12/2018 4:08:50 PM Sign Date: 10/12/2018 4:10:00 PM urinalysis, reflex to microscopic on 2017-03-02 Bilirubin Ql (U) Negative Negative Normal 03-02-2017 [facility] ( 79877) Urine, clarity Clear Clear Normal 03-02-2017 [facility] ( 49404) Urine, color Yellow Straw/[place] Normal 03-02-2017 [facility] ( 93438) Urine, glucose Negative Negative Normal 03-02-2017 [facility] ( 38572) Urine, hemoglobin Negative Negative Normal 03-02-2017 [facility] ( 02663) Urine, ketones Negative Negative Normal 03-02-2017 [facility] ( 02120) Urine, leukocyte Negative Negative Normal 03-02-2017 [facility] esterase presence Ho spital (90207) Urine, nitrite Negative Negative Normal 03-02-2017 [facility] ( 63259) Urine, pH 6.0 5.0-9.0 [pH] Normal 03-02-2017 [facility] ( 45393) Urine, protein Negative Negative Normal 03-02-2017 [facility] ( 50824) Urine, specific 1.015 1.005-1.03 Normal 03-02-2017 [facility] ( 58499) Urine, urobilinogen 1.0 < 2.0 E.U./dL Normal 03-02-2017 [facility] ( 83748) comprehensive metabolic panel on 2017-03-02 Alanine aminotransferase 19 0-41 U/L Normal 03-02 [facility] (ALT) [facility] ( 95479) Albumin 4.2 3.9-4.9 g/dL Normal 03-02-2017 [facility] ( 05380) Alkaline phosphatase 52 35-104 U/L Normal 7 [facility] (ALP) [facility] ( 60783) Anion gap 12 7-13 mEq/L Normal 03-02-2017 [facility] ( 54683) Aspartate 15 0-40 U/L Normal 03-02-2017 [facility] aminotransferase (AST) [facility] (06761) Bilirubin (total) 0.2 0.0-1.2 mg/dL Normal 03-02-2017 [facility] ( 53496) Calcium 9.2 8.6-10.2 mg/dL Normal 03-02-2017 [facility] ( 30250) Chloride 100 98-107 mEq/L Normal 03-02-2017 [facility] ( 19884) CO2 29 22-29 mEq/L Normal 03-02-2017 [facility] ( 74023) Creatinine 0.79 0.70-1.20 mg/dL Normal 03-02-2017 [facility] ( 04277) eGFR (black) >60.0 >60 mL/min/{1.7 Normal 03-02-2017 [facility] 3_m2} [facility] ( 51146) Comment: Result Comment: >60 mL/min/1 .73m2 EGFR, calc. for ages 18 and older using theMDRD formula (not correct ed for weight), is valid for stablerenal function. eGFR (MDRD) >60.0 >60 mL/min/{1.73_m2} Normal 03-02-2017 [facility] (73600) Comment: Result Comment: >60 mL/min/1 .73m2 EGFR, calc. for ages 18 and older using theMDRD formula (not correct ed for weight), is valid for stablerenal function. Globulin 3.1 2.3-3.5 g/dL Normal 03-02-2017 [facility] ( 49956) Glucose mass conc 112 74-109 mg/dL Critically high 2016 [facility] ( 08615) Potassium molar conc 3.6 3.5-5.1 mEq/L Normal 7 [facility] ( 52675) Protein 7.3 6.4-8.1 g/dL Normal 03-02-2017 [facility] ( 16271) Sodium 141 132-144 mEq/L Normal 03-02-2017 [facility] ( 46475) Urea nitrogen 13 6-20 mg/dL Normal 03-02-2017 [facility] ( 68946) cbc with platelet and differential on 2017-03-02 Basophils Auto #/vol 0.0 0.0-0.2 K/uL Normal [address] [place] [address] ( 11596) Basophils/100 WBC 0.5 % Normal 03-02-2017 [facility] (90702) Eosinophils 0.1 0.0-0.7 K/uL Normal 03-02-2017 [facility] ( 48295) Eosinophils/100 1.4 % Normal 03-02-2017 [facility] (44382) Erythrocyte 15.0 11.5-14.5 % Critically high 03-02-2017 [facility] distribution width H ospital (50353) Auto Ratio (RBC) Erythrocytes (RBC) 5.09 4.70-6.10 M/uL Normal 03-02-2017 [facility] ( 58798) Hematocrit (HCT) 41.3 42.0-52.0 % Low 03-02-2017 [facility] ( 75350) Hemoglobin mass conc 13.9 14.0-18.0 g/dL Low [address] [place] [address] ( [address]368) Lymphocytes 1.7 1.0-4.8 K/uL Normal 03-02-2017 [facility] ( 79709) Lymphocytes/100 29.4 % Normal 03-02-2017 [facility] (82504) MCH 27.3 27.0-31.3 pg Normal 03-02-2017 [facility] ( 90383) MCHC mass conc (RBC) 33.6 33.0-37.0 % Normal 7 [facility] ( 95560) MCV 81.2 80.0-100.0 fL Normal 03-02-2017 [facility] ( 51709) Monocytes 0.5 0.2-0.8 K/uL Normal 03-02-2017 [facility] ( 99781) Monocytes/100 9.1 % Normal 03-02-2017 [facility] (36451) Neutrophils 3.4 1.4-6.5 K/uL Normal 03-02-2017 [facility] ( 99756) Neutrophils/100 59.6 % Normal 03-02-2017 [facility] (92856) Platelets 303 130-400 K/uL Normal 03-02-2017 [facility] ( 79237) WBC (Leukocytes) 5.8 4.5-11.0 K/uL Normal 03-02-2017 [facility] ( 45829) Vital Signs Vital Sign Description Value / Unit Date Location The following section is limited to 5 en tries per type and includes entries from the following time range: 20191115 - 20191025 3. Body Temperature 97.11 [degF] 11-15-2019 [facility] (52125) Body weight 76.3 kg 11-15-2019 [facility] (18416) BP Diastolic 68 mm[Hg] 11-15-2019 [facility] (92363) BP Systolic 102 mm[Hg] 11-15-2019 [facility] (74317) Pulse (Heart Rate) 100 /min 11-15-2019 [facility] [facility] (51430) Pulse Oximetry 96 % 11-15-2019 [facility] (04011) Respiratory Rate 16 /min 11-15-2019 [facility] (03309) Encounters Date Type Reason Provider Location 03-02-2017 - Emergency ANNA MARIE [facility]OK[facility] 03-02-2017 [facility] (07454) visit 11-15-2019 - Patient encounter Acute conjunctivitis Terese Cabrera linda Urgent 11-15-2019 procedure of right eye Care Comment: Acute conjunctivitis of righ t eye, unspecified acute conjunctivitis type (Primary Dx) Procedures Procedure Name Date Provider Location CBC WITH AUTO DIFFERENTIAL 03-02-2017 [facility] (04011) COMPREHENSIVE METABOLIC PANEL 03-02-2017 [facility] (35460) Urinalysis 03-01-2017 [facility] (82965) Plan of Treatment Plan Description Date Location DTAP,TDAP,TD (6 - Td) DTAP,TDAP,TD (6 - Td) 12-30-2021 [facility] (44191) INFLUENZA (#1) INFLUENZA (#1) 2019 [facility] (98159) HEPATITIS C SCREENING HEPATITIS C SCREENING 12-28-2015 [facility] (02904) HIV SCREENING HIV SCREENING 12-28-2015 [facility] (07963) HPV VACCINE (1 - 2-dose HPV VACCINE (1 - 2-dose 2008 [facility] (28051) series) series) Immunizations Vaccine Notes Status Date Location DTaP (Age<7) diphtheria, tetanus (completed) 06-10-1999 [facility] toxoids and acellular (47429 ) pertussis vaccine DTaP (Age<7) diphtheria, tetanus (completed) 06-26-1998 [facility] toxoids and acellular (24350 ) pertussis vaccine DTaP (Age<7) diphtheria, tetanus (completed) 05-10-1998 [facility] toxoids and acellular (87664 ) pertussis vaccine DTaP (Age<7) diphtheria, tetanus (completed) 04-10-1998 [facility] toxoids and acellular (53013 ) pertussis vaccine DTaP (Age<7) diphtheria, tetanus (completed) 02-05-1998 [facility] toxoids and acellular (58146 ) pertussis vaccine Hib - 4 Dose haemophilus influenzae (completed) 05-10-1998 [facility] Schedule type b vaccine, HbOC (26913) conjugate Hib - 4 Dose haemophilus influenzae (completed) 04-10-1998 [facility] Schedule type b vaccine, HbOC (82693) conjugate Hib - 4 Dose haemophilus influenzae (completed) 02-05-1998 [facility] Schedule type b vaccine, HbOC (23136) conjugate Hepatitis A vaccine hepatitis A vaccine, (completed) 12-18-2006 [facility] unspecified (53677) formulation Hepatitis A vaccine hepatitis A vaccine, (completed) 04-04-2006 [facility] unspecified (81148) formulation Hepatitis B hepatitis B vaccine, (completed) 12-18-2006 [facility] Peds/Adol pediatric or (15128) pediatric/adolescent dosage Hepatitis B hepatitis B vaccine, (completed) 02-05-1998 [facility] Peds/Adol pediatric or (49583) pediatric/adolescent dosage Hepatitis B hepatitis B vaccine, (completed) 1997 [facility] Peds/Adol pediatric or (34082) pediatric/adolescent dosage MMR measles, mumps and (completed) 06-10-1999 [facility] rubella virus vaccine (91546 ) MMR measles, mumps and (completed) 04-10-1998 [facility] rubella virus vaccine (34884 ) IPV poliovirus vaccine, (completed) 04-04-2006 [facility] inactivated (46720) IPV poliovirus vaccine, (completed) 05-10-1998 [facility] inactivated (16032) IPV poliovirus vaccine, (completed) 04-10-1998 [facility] inactivated (85974) IPV poliovirus vaccine, (completed) 02-05-1998 [facility] inactivated (91270) Tdap (Age 7+) tetanus toxoid, (completed) 12-31-2011 [facility] linic reduced diphtheria (83858) toxoid, and acellular pertussis vaccine, adsorbed Payers Payer Name Policy Number Location [facility] MEDICA[facility] [id number] [facility] (44 195) The following information is from the original human readable contentNo Payer Records FoundNo Payer Records FoundNo Payer Records FoundNo Payer Records FoundNo Payer Records Found Social History Type Social History Description Date Locat ion Tobacco smoking status Never smoker 11-15-2019 [facility] (08895) NHIS Tobacco use and exposure Never used 11-15-2019 [facility] (48359) Alcohol intake Current non-drinker of 11-15-2019 [facility] (45731) alcohol (finding) Tobacco Comment mom smokes inside 02-08-2010 [facility] (11198) Sex Assigned At Not on file [facility] (36850) Exposure to SARS-CoV-2 Not sure [facility] (14255) (event) The following information is from the original human readable contentNo Social History Records FoundNo Social History Records FoundNo Social History Records FoundNo Social History Records FoundNo Social History Records Found Summary Purpose Family History No Family History Records FoundNo Family History Records FoundNo Family History Records Found Advance Directives Documents on File Type Date 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 Acute conjunctivitis of right eye, unspecified acute conjunctivitis type - ICD9: 372.00, ICD10: H10.31 - see medication orders - course and contagiousness issues discussed, including hand washing. - Instructed to call if high fever, development of periorbital redness or swelling, eye pain, visualchanges, concerns or if symptoms persist. Wash eye/eyes with diluted baby shampoo morning and night to remove crusted secretions. Place one drop of shampoo on washcloth and dilute with warm water and gently wash eyes. Use a different washclothfor each eye or you can use eye makeup remover pads for cleansing as well. Cool compresses for eye in flammation/irritation frequently throughout the day. Do not wear contacts for the next 7 days then begin wearing a new pair after that. No eye makeup for next 7 days, throw away any makeup that you used prior to this infection. Go to ER for any sudden loss of vision or severe vision changes. Follow up with PCP if no improvement in 1 week. documented in this encounter History of Present Illness Terese Price - 11/15/2019 9:36 AM EDT Subjective The history is provided by the patient. No historic interpreter was used. HPI Alexander Umana is a 23 year old adult who presents today for CC of right eye redness and yellow/green drainage that started in the past 24 hours. The patient has used warm compresses. Denies any loss or change in vision, no pain in eye. Ex-Partner positive for conjunctivitis a couple weeks ago. Hadbeen in bed, did not clean sheets. BP 102/68 Pulse 100 Temp 36.2 ?C (97.1 ?F) (Left Tympanic) Resp 16 Wt 76.3 kg (168 lb 3.2 oz) SpO2 96% Social History Tobacco Use ? Smoking status: Passive Smoke Exposure - Never Smoker ? Smokeless tobacco: Never Used ? Tobacco comment: mom smokes inside Substance Use Topics ? Alcohol use: No ? Drug use: No PAST MEDICAL HISTORY Diagnosis Date ? Depression 2012 [facility] ? PMH - PAST MEDICAL HISTORY OF 02/08/10 normal color vision ? Right hand fracture Dr Allison I have confirmed and edited as necessary, the [facility] Review of Systems Constitutional: Negative for chills and fever. HENT: Negative for congestion, ear pain, sinus pain and sore throat. Eyes: Positive for discharge and redness. Respiratory: Negative for cough, sputum production, shortness of breath and wheezing. Cardiovascular: Negative for chest pain. Musculoskeletal: Negative for myalgias. Neurological: Negative for headaches. Objective Physical Exam Eyes: Pupils are equal, round, and reactive to light. EOM are normal. Right eye exhibits discharge. Left eye exhibits no discharge. Right conjunctiva is injected. Left conjunctiva is not injected. Fundoscopic exam: The right eye shows red reflex. The left eye shows red reflex. Nursing note and vitals reviewed. ASSESSMENT/PLAN: 1. Acute conjunctivitis of right eye, unspecified acute conjunctivitis type - ICD9: 372.00, ICD10: H10.31 - see medication orders - course and contagiousness issues discussed, including hand washing. - Instructed to call if high fever, development of periorbital redness or swelling, eye pain, visualchanges, concerns or if symptoms persist. Diagnosis and treatment plan were discussed and questions were answered to the patient's satisfaction. Pt acknowledged understanding of concepts and follow up plan. Specific signs and symptoms that would indicate the need for higher level of care were discussed in detail warranting prompt ER evaluation. Terese Price APRN.BUSINESS MGR documented in this encounter Assessments Diagnosis Acute conjunctivitis of right eye, unspe cified acute conjunctivitis type - Primary Additional Source Comments FOR RECORDS PERTAINING TO PATIENTS WHO ARE OR HAVE BEEN ENROLLED IN A CHEMICAL DEPENDENCY/SUBSTANCE ABUSE PROGRAM, SOME INFORMATION MAY BE OMITTED. This clinical summary was aggregated from multiple sources. Caution should be exercised in using it in the provision of clinical care. This summary normalizes information from multiple sources, and as a consequence, information in this document may materially changethe coding, format and clinical context of patient data. In addition, data may be omittedin some cases. CLINICAL DECISIONS SHOULD BE BASED ON THE PRIMARY CLINICAL RECORDS. [facility] provides no warranty or guarantee of the accuracy or completeness of information in this document. UNRECOGNIZED CONTENT PROVIDED BELOW FOR UNRECOGNIZED SECTION No Status Records FoundNo Status Records FoundNo Status Records Found UNRECOGNIZED CONTENT PROVIDED BELOW FOR UNRECOGNIZED SECTION INFORMATION SOURCE DATE CREATED AUTHOR AUTHOR'S ORGANIZATIO N 09/17/2017 [facility] DATE CREATED AUTHOR AUTHOR'S ORGANIZATIO N 10/12/2018 [facility] ([place]) DATE CREATED AUTHOR AUTHOR'S ORGANIZATIO N 11/15/2019 [facility] Serafin campos UNRECOGNIZED CONTENT PROVIDED BELOW FOR UNRECOGNIZED SECTION Source Comments In the event this information is protected by the Federal Confidentiality of Alcohol and Drug Abuse Patient Records regulations: The Federal rules restrict any use of the information to criminally investigate or prosecute any alcohol or drug abuse patient.[facility] UNRECOGNIZED CONTENT PROVIDED BELOW FOR UNRECOGNIZED SECTION Reason for Visit Reason Comments Eye Problem RIGHT eye redness with drain age x 1 day
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
== END 2019-08-14 00:31 | disposition home or self-care (01) ==
PROVIDERS: Emergency Provider Emergency Medicine; PCP Nurse Practitioner Primary Care
DX: J06.9 Acute upper respiratory infection, unspecified (principal); R11.2 Nausea with vomiting, unspecified; F17.210 Nicotine dependence, cigarettes, uncomplicated; F12.90 Cannabis use, unspecified, uncomplicated
CPT/HCPCS: 71045; 87804; 87807; 87880; 96360; 99283

== ENCOUNTER 2019-09-29 18:07 | Emergency (ER) | payer MEDICAID, SELFPAY ==
[2019-09-29 18:09] VITALS: BP 128/92; PULSE 115; RESP 16; TEMP 36.7; O2SAT 96; BMI 26.6
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
[2019-09-29] MEDS: HYDROcodone Bitartrate/Apap 5/325 Tablet PO (22:02)
[2019-09-29 22:09] VITALS: BP 119/78; PULSE 79; RESP 16; O2SAT 98
== END 2019-09-29 22:15 | disposition home or self-care (01) ==
PROVIDERS: Emergency Provider Emergency Medicine; PCP Nurse Practitioner Primary Care
DX: S02.40CA Maxillary fracture, right side, initial encounter for closed fracture (principal); Z72.0 Tobacco use; Y04.2XXA Assault by strike against or bumped into by another person, initial encounter; Y93.89 Activity, other specified; Y92.89 Other specified places as the place of occurrence of the external cause; Y99.8 Other external cause status
CPT/HCPCS: 70450; 70486; 72125; 99284

== ENCOUNTER 2019-10-11 13:38 | Emergency (ER) | payer MEDICAID, SELFPAY ==
[2019-10-11 13:40] VITALS: BP 119/71; PULSE 83; RESP 15; TEMP 36.8; O2SAT 97; BMI 25.4
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
--- NOTE | 2019-10-11 14:34 | DCINST.ED_ITS ---
ED Disposition - Plan for ED Patient: Instructions: ED Concussion Prescriptions: Ondansetron [Zofran Odt] 4 mg PO Q8H PRN PRN #10 tab PRN Reason: Nausea Transmission Status: Pending to [facility] Referrals: Adam Castañeda PA [Primary Care Provider] - Mo Garcia MD [STAFF PHYSICIAN] - 3-5 Days
== END 2019-10-11 14:43 | disposition home or self-care (01) ==
LOC: ED 14:24
PROVIDERS: Emergency Provider Emergency Medicine; PCP Physician Assistant
DX: F07.81 Postconcussional syndrome (principal); Z72.0 Tobacco use
CPT/HCPCS: 70450; 99282

== ENCOUNTER 2019-11-01 21:03 | Emergency (ER) | payer MEDICAID, SELFPAY ==
[2019-11-01 21:04] VITALS: BP 109/63; PULSE 79; RESP 15; TEMP 36.8; O2SAT 97; BMI 25.8
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
[2019-11-01] MEDS: Metoclopramide 10 MG/2 ML Vial IV (21:49)
[2019-11-01] MEDS: DiphenhydrAMINE 50 MG/ML Syringe 25 MG IV (21:49)
[2019-11-01 22:22] LABS: Erythrocyte Sedimentation Rate 2 mm/hr (0-15)
== END 2019-11-01 22:50 | disposition home or self-care (01) ==
PROVIDERS: Emergency Provider Student in an Organized Health Care Education/Training Program; PCP Physician Assistant
DX: R50.9 Fever, unspecified (principal); R51 Headache; F17.200 Nicotine dependence, unspecified, uncomplicated
CPT/HCPCS: 85652; 87635; 94799; 96374; 96375; 99283; A4216; U0003

== ENCOUNTER 2020-01-07 22:47 | Emergency (ER) | payer MEDICAID, SELFPAY ==
[2020-01-07 22:48] VITALS: BP 134/69; PULSE 97; RESP 17; TEMP 36.2; O2SAT 98; BMI 26.8
--- NOTE | 2020-01-07 23:42 | ED.DCSUM_ITS ---
History of Present Illness Chief Complaint: Nausea/Vomiting Informant: Patient - Abdominal Pain/Flank Pain Onset: Today Context: Gradual Onset Timing: Continuous Quality: - - no abd pains Current Severity: Mild Maximum Severity: Moderate Worsened by: Nothing Relieved by: Nothing - Nausea/Vomiting/Emesis GI Symptom: Nausea, Vomiting Onset: Today - nauseated 2d ago w/o vomiting or pain Quality: Nonbilious. Negative for: Blood streaks, Coffee ground, Hematemesis Episodes: 3 - Diarrhea/Melena/Hematochezia GI Symptom: Negative for: Diarrhea, Melena, Hematochezia Associated Symptoms: Negative for: Dysuria, Frequency, Hematuria, Urgency Narrative: 24-year-old male who is trying to undergo transgender hormone replacement but has not started it yet who works at [employer] was vomiting there tonight and was asked to leave so that he did not spread any possible infection to other people. He denies any other symptoms or fevers, he denies headaches, myalgias, anything worse than a smoker's cough, shortness of breath, chest discomfort, blood in the stool, melena, diarrhea. Patient presents during the national coronavirus emergency declaration/pandemic. He denies any known contact with anyone infected with COVID-19. He denies traveling out of the immediate area recently. Patient states he has been eating a lot of food and [employer] and feels like his body is telling him to get something healthy in him. He denies any hematemesis. States he wants to make sure he gets a work note. - Past Medical History (1) Hypertension Status: Chronic Past Medical History - Allergies and Home Meds Allergies/Adverse Reactions: Allergies amoxicillin [From Augmentin] Allergy (Verified 01/07/20 22:50) Rash clavulanic acid [From Augmentin] Allergy (Verified 01/07/20 22:50) Rash Primary Care Physician: Care Physician,No Primary [Primary Care Provider] - Surgical History: appendectomy Smoking Status: Current every day smoker Review of Systems General: Denies: Chills, Fever, Sweats Eyes: Denies: Visual changes - bilaterally, Diplopia ENT: Denies: Rhinorrhea, Sore throat Cardiovascular: Denies: Chest pain, Palpitations Respiratory: Reports: Cough. Denies: Dyspnea, Sputum, Dyspnea on exertion Gastrointestinal: Reports: Nausea, Vomiting. Denies: Abdominal pain, Diarrhea, Melena, Hematochezia Genitourinary: Denies: Dysuria, Hematuria, Frequency Musculoskeletal: Denies: Myalgias, Back pain, Swelling, Extremity Pain Skin: Denies: Rash, Wounds Neurological: Denies: Headache, Weakness, Numbness Physical Exam Vital Signs/Narrative: Vital Signs Temp Pulse Resp BP Pulse Ox 01/07/20 22:48 97.1 F L 97 17 134/69 H 98 Inital Vital Signs reviewed: Yes General: Well nourished, Well developed, No Acute Distress - Well-appearing Head: Normocephalic, Atraumatic Eyes: Perrl, EOMI ENT: Moist mucous membranes, No rhinorrhea Neck: Supple, Nontender Cardiovascular: Regular rate, Regular rhythm, No murmurs. Negative for: Tachycardia Respiratory: No distress, CTA bilaterally, Chest nontender Abdomen: Soft, Nontender, Nondistended, Normal bowel sounds, No masses Back: Nontender, Normal Inspection. Negative for: CVA tenderness Extremities: Nontender, No edema Skin: Normal color, No rash, No Trauma Neurological: Alert, Oriented x3, Cranial nerves II-XII grossly intact, Normal Strength, Normal Sensation Psychological: Normal affect, Normal Mood Diagnostic/Tx/Re-eval - Medical Decision Making Patient does not have any female parts although he is borderline transgender. Therefore I do not think he needs any other tests right now. This is likely simple gastritis, given treatment as well as prescriptions for Zofran and Pepcid and advised to follow-up, he has no PCP so he was given 1 off of the unassigned list. ED Disposition - Plan for ED Patient: Disposition: Home or Assisted Living Diagnosis: Acute gastritis without bleeding Instructions: ED Gastritis Prescriptions: Famotidine [Pepcid] 40 mg PO DAILY #14 tab Prescription Printed Ondansetron [Zofran Odt] 8 mg PO Q8H PRN PRN #20 tab PRN Reason: Nausea Prescription Printed Referrals: Mitchel Alberts MD [STAFF PHYSICIAN] - As Needed (For primary care)
[2020-01-07] MEDS: Ondansetron ODT 4 MG Tablet 8 MG PO (23:57)
[2020-01-08] MEDS: Mag Hydrox/Al Hydrox/Simeth 30 ML UDC PO (00:12)
[2020-01-08 00:18] VITALS: BP 134/67; PULSE 82; RESP 18; O2SAT 96
== END 2020-01-08 00:19 | disposition home or self-care (01) ==
PROVIDERS: Emergency Provider Emergency Medicine
DX: K29.00 Acute gastritis without bleeding (principal); I10 Essential (primary) hypertension; F17.200 Nicotine dependence, unspecified, uncomplicated
CPT/HCPCS: 99281; 99284

== ENCOUNTER 2020-01-16 23:35 | Emergency (ER) | payer MEDICAID, SELFPAY ==
[2020-01-16 23:36] VITALS: BP 135/86; PULSE 137; RESP 16; TEMP 37; O2SAT 98; BMI 26.0
--- NOTE | 2020-01-17 00:08 | ED.VISSUMM ---
- ER Visit Summary Date of Service: 01/17/20 Chief Complaint: Sore throat and fever History of Present Illness: The patient is a 24 M who presents with sore throat and fever that became worse today. Patient states he called off work today. Patient states his employer told him he needed to come get checked and make sure that he could go back to work. Patient states his fever was less than 101. Patient admits to a slight cough. Patient states his throat feels aching. Patient states nothing makes it better or worse. Patient states his last dose of Tylenol was over 6 hours ago. Physical Examination: Vital signs are stable. Patient is afebrile. Patient is in no acute distress. Oral mucosa is pink and moist. Oropharynx is mildly erythematous. There are no exudates noted. Neck is supple. Trachea is midline. There is no JVD or lymphadenopathy. Heart was regular rate and rhythm. Lungs are clear and equal bilaterally. Cranial nerves II through XII are intact. There are no focal motor or sensory deficits. Emergency Department Course and Treatment: Patient meets 1 out of 4 [facility] criteria. Patient was advised that this is unlikely to be strep throat. Patient was instructed to follow-up with his primary care physician in 5 to 7 days. Patient understood and was agreeable with the plan. All questions were answered. Disposition: Discharge home Impression: Viral pharyngitis This note was generated with [employer] dictation software. It may contain incorrect words, spelling, and punctuation that were not noted in review of the chart prior to signing ED Disposition - Plan for ED Patient: Disposition: Home or Assisted Living Diagnosis: Viral pharyngitis Instructions: ED Pharyngitis Viral Referrals: Domingo Moore III, MD [STAFF PHYSICIAN] - 5-7 Days
== END 2020-01-17 00:40 | disposition home or self-care (01) ==
PROVIDERS: Emergency Provider Emergency Medicine
DX: J02.8 Acute pharyngitis due to other specified organisms (principal); B97.89 Other viral agents as the cause of diseases classified elsewhere; Z72.0 Tobacco use
CPT/HCPCS: 99281

== ENCOUNTER 2020-02-28 12:08 | Emergency (ER) | payer MEDICAID, SELFPAY ==
[2020-02-28 12:09] VITALS: BP 149/106; PULSE 113; RESP 16; TEMP 36.6; O2SAT 100; BMI 26.4
--- NOTE | 2020-02-28 12:17 | ED.VISSUMM ---
- ER Visit Summary Date of Service: 02/28/20 Chief Complaint: Headache History of Present Illness: The patient is a 24 M presenting with migraine headache. Patient states this has been ongoing for the past week. It was gradual in onset. Similar to previous migraines. Denies nausea or vomiting. Denies fever. Patient has tried ibuprofen, Aleve, Tylenol at home. Denies other complaints. Physical Examination: Vitals are stable. Patient is afebrile. Alert no acute distress. HEENT exam is unremarkable. Neck is supple. No meningismus Lungs are clear and equal bilaterally. Heart is regular rate and rhythm. Abdomen is soft nontender nondistended. Extremities are unremarkable. Skin is warm and dry. No focal neurologic deficit. Remainder of exam is unremarkable. Emergency Department Course and Treatment: Patient was given Reglan, Benadryl, Toradol. On re-evaluation, patient is feeling improved. Advised to follow up with Dr Marquez plant controls specialist for no doctor. Advised to return to the ED for worsening complaints. Disposition: Discharge home Impression: Headache This note was generated with [employer] dictation software. It may contain incorrect words, spelling, and punctuation that were not noted in review of the chart prior to signing ED Disposition - Plan for ED Patient: Instructions: ED Headache Unspecified Referrals: Luis Carlos Marquez MD [NON-STAFF] -
[2020-02-28] MEDS: Ketorolac 30 MG/ML Syringe IV (12:31)
[2020-02-28] MEDS: DiphenhydrAMINE 50 MG/ML Syringe 25 MG IV (12:31)
[2020-02-28] MEDS: Metoclopramide 10 MG/2 ML Vial 5 MG IV (12:31)
[2020-02-28 13:20] VITALS: BP 129/77; PULSE 59; RESP 16; O2SAT 98
== END 2020-02-28 13:21 | disposition home or self-care (01) ==
LOC: ED 12:39
PROVIDERS: Emergency Provider Emergency Medicine
DX: R51.9 Headache, unspecified (principal); Z72.0 Tobacco use
CPT/HCPCS: 96374; 96375; 99283; A4216

== ENCOUNTER 2020-04-24 02:06 | Emergency (ER) | payer MEDICAID, SELFPAY ==
[2020-04-24 02:07] VITALS: BP 118/70; PULSE 85; RESP 17; TEMP 36.9; O2SAT 99; BMI 26.4
--- NOTE | 2020-04-24 02:12 | ED.DCSUM_ITS ---
History of Present Illness Chief Complaint: GI Bleed Informant: Patient Onset: Today Context: Sudden Onset Timing: Intermittent Current Severity: Mild Maximum Severity: Moderate Narrative: Patient is a 24-year-old transgender male to female who presents to the emergency department abdominal cramping and blood with bowel movement. Patient states that they were in their normal state of health today. They actually donated plasma. States that began to have some abdominal cramping and felt mildly nauseated. They also smokes marijuana. Shortly after, they began to h ave some cramping and had a bowel movement. They state that it was mostly stool with some bright red blood mixed. They deny any recent anal intercourse, history of inflammatory bowel disease, fever, chills, weight loss. Only surgical history is appendectomy. Prior similar symptoms: No Recent Illness/Hospitalization: No Past Medical History - Allergies and Home Meds Allergies/Adverse Reactions: Allergies amoxicillin [From Augmentin] Allergy (Verified 04/24/20 02:10) Rash clavulanic acid [From Augmentin] Allergy (Verified 04/24/20 02:10) Rash Primary Care Physician: Care Physician,No Primary [Primary Care Provider] - Prior records reviewed: Yes Past Medical History: - - Psychiatric disease Surgical History: appendectomy Smoking Status: Current every day smoker Review of Systems General: Denies: Chills, Fever, Sweats Eyes: Denies: Visual changes - bilaterally, Diplopia ENT: Denies: Rhinorrhea, Sore throat Cardiovascular: Denies: Chest pain, Palpitations Respiratory: Denies: Dyspnea, Cough, Dyspnea on exertion Gastrointestinal: Reports: Hematochezia. Denies: Abdominal pain, Nausea, Vomiting, Diarrhea, Melena Genitourinary: Denies: Dysuria, Hematuria, Frequency Musculoskeletal: Denies: Back pain, Extremity Pain Skin: Denies: Rash, Wounds Neurological: Denies: Headache, Weakness, Numbness Physical Exam Vital Signs/Narrative: Vital Signs Temp Pulse Resp BP Pulse Ox 04/24/20 02:07 98.5 F 85 17 118/70 99 Inital Vital Signs reviewed: Yes General: Well nourished, Well developed, No Acute Distress Head: Normocephalic, Atraumatic Eyes: Perrl, EOMI ENT: Moist mucous membranes, No rhinorrhea Neck: Supple, Nontender Cardiovascular: Regular rate, Regular rhythm, No murmurs Respiratory: No distress, CTA bilaterally, Chest nontender Abdomen: Soft, Nontender, Nondistended, Normal bowel sounds Rectal: - - Rectal exam was performed with female nurse society reporter. There is a large external fissure and hemorrhoid. There is stigmata of recent bleeding. There is no active bleeding. Back: Nontender, Normal Inspection Extremities: Nontender, No edema Skin: Normal color, No rash Neurological: Alert, Oriented x3, Cranial nerves II-XII grossly intact, Normal Strength, Normal Sensation Psychological: Normal affect, Normal Mood Diagnostic/Tx/Re-eval Clinical Impression(s) from Imaging Studies Abdomen/Pelvis CT 04/24/20 02:12 IMPRESSION: Cannot exclude mild enteritis. Suggestion of prior appendectomy otherwise unremarkable CT of the abdomen and pelvis. Electronically Signed: Norma Saldivar MD at 3:00 EST , Service support , Abnormal Lab Results 04/24/20 04/24/20 02:15 02:15 WBC 6.3 RBC 4.84 Hgb 14.1 Hct 42.3 MCV 87.4 MCH 29.1 MCHC 33.3 RDW Std Deviation 38.1 RDW Coeff of Alphonse 11.8 Plt Count 309 MPV 9.0 Immature Gran % (Auto) 0.600 Neut % (Auto) 64.0 Lymph % (Auto) 23.4 Amelia % (Auto) 8.8 Eos % (Auto) 2.7 Baso % (Auto) 0.5 Absolute Neuts (auto) 4.0 Absolute Lymphs (auto) 1.46 Nucleated RBC % 0 Sodium 138 Potassium 4.0 Chloride 107 Carbon Dioxide 25.0 Anion Gap 6 BUN 8 Creatinine 0.78 Estim Creat Clear Calc 143.72 Est GFR (MDRD) Af Amer 160 Est GFR (MDRD) Non-Af 132 BUN/Creatinine Ratio 10.3 Glucose 111 H Calcium 8.0 L Total Bilirubin 0.20 AST 11 L ALT 18 Alkaline Phosphatase 61 Total Protein 6.2 L Albumin 2.9 L Globulin 3.3 Albumin/Globulin Ratio 0.9 - Medical Decision Making Patient's abdomen is soft and nontender. She has normal vital signs. Labs were obtained. Screening labs are relatively unremarkable. Patient underwent CT of the abdomen and pelvis. There is evidence of mild enteritis. With the bloody diarrhea, I am going to cover her with 3 days of Cipro. She will also be given Bentyl. On reevaluation, she is resting comfortably. I do feel that she is safe for outpatient therapy. Impression 1. Infectious enteritis ED Disposition - Plan for ED Patient: Instructions: ED Food Poison Or Gastroenteritis Prescriptions: Dicyclomine HCl [Bentyl] 20 mg PO TIDAC #20 cap Prescription Printed Ciprofloxacin [Cipro] 500 mg PO BID #6 tab Prescription Printed Referrals: Care Physician,No Primary [Primary Care Provider] -
--- NOTE | 2020-04-24 02:12 | CT_ITS ---
STUDY: CT ABDOMEN AND PELVIS WITH CONTRAST REASON FOR EXAM: Male, 24 years old. ABDOMINAL PAIN AND CRAMPING,BLACK TARRY AND BLOOD IN STOOLS THIS AM,PT GAVE PLASMA 04-23-20 -- HX:HTN,APPENDECTOMY RADIATION DOSAGE (If Supplied By Facility): CTDIvol = ( 13.97 ) mGy, DLP = ( 832.61 ) mGycm TECHNIQUE: Transaxial images were obtained from the dome of the diaphragm to the symphysis pubis without oral contrast. IV 100mL Isovue-370 was administered. Sagittal and coronal images were reconstructed. Individualized dose optimization techniques were used for this CT. COMPARISON: 08/03/2016. FINDINGS: The visualized lung bases are unremarkable. The visualized portions of the heart are within normal limits. Normal liver. Normal gallbladder and extrahepatic biliary system. Normal spleen. Normal pancreas. Normal bilateral adrenal glands. Normal right kidney. Normal left kidney. Normal visualized stomach. Mild distention of the mid to proximal small bowel loops with prominent thickening of the wall which may indicate enteritis. The descending colon is decompressed. The appendix is not visualized with surgical clips in the region of the cecum suggestive of prior appendectomy. Normal abdominal aorta. Normal inferior vena cava. Normal retroperitoneum. Normal urinary bladder. Normal abdominal wall. Normal osseous structures. CT/Abdomen/Pelvis W IV Cont ONLY IMPRESSION: Cannot exclude mild enteritis. Suggestion of prior appendectomy otherwise unremarkable CT of the abdomen and pelvis. Electronically Signed: Norma Saldivar MD at 3:00 EST , Service support ,
[2020-04-24] MEDS: 0.9% Normal Saline 1,000 ML 1000 ML IV (02:16)
[2020-04-24] MEDS: Ondansetron 4 MG/2 ML Vial IV (02:16)
[2020-04-24 02:21] LABS: Absolute Lymphocyte Count 1.46 X10^3/uL (0.83-4.51); Basophil# 0.03 X10^3/uL; Basophil% 0.5 % (0-1); Eosinophil# 0.17 X10^3/uL; Eosinophils% 2.7 % (0-5); Hematocrit 42.3 % (40-54); Hemoglobin 14.1 g/dL (13.0-16.5); Lymphocyte # 1.46 X10^3/ul (4.0); Lymphocyte % 23.4 % (19-41); Mean Corp Hgb Conc 33.3 g/dL (32-36); Mean Corpuscular Hgb 29.1 pg (27.0-32.0); Mean Corpuscular Volume 87.4 fL (80-94); Monocyte# 0.55 X10^3/uL; Monocyte% 8.8 % (0-10); NRBC Flagged by Analyzer 0 % (0-5); Platelet Count 309 K/mm3 (150-450); RBC Distribution Width CV 11.8 % (11.6-14.6); RBC Distribution Width SD 38.1 fl (35.1-43.9); Red Blood Count 4.84 M/mm3 (4.6-6.2); White Blood Count 6.3 K/mm3 (4.4-11.0)
[2020-04-24 02:38] LABS: ALB/GLOB Ratio 0.9 RATIO (0.9-2.4); AST(SGOT) 11 U/L (15-37); Alanine Aminotransfer ALT/SGPT 18 U/L (16-61); Albumin, Serum 2.9 g/dL (3.2-5.0); Alkaline Phosphatase 61 U/L (45-117); Anion Gap 6 (5-15); BUN 8 mg/dL (7-18); BUN/Creat Ratio 10.3 RATIO (10-20); Chloride 107 mmol/L (98-107); Creatinine, Serum 0.78 mg/dL (0.70-1.30); EST Glomerular Filtration Rate 132 mL/min (>60); Est Glom Filt Rate - Afr Amer 160 mL/min (>60); Estimated Creatinine Clearance 143.72 ml/min; Globulin 3.3 g/dL (2.2-4.2); Glucose 111 mg/dL (74-106); Protein, Total 6.2 g/dL (6.4-8.2); Sodium Level 138 mmol/L (136-145)
[2020-04-24 03:12] VITALS: BP 110/52; PULSE 96; RESP 16; O2SAT 100
== END 2020-04-24 03:22 | disposition home or self-care (01) ==
LOC: ED 02:47
PROVIDERS: Emergency Provider Emergency Medicine
DX: A09 Infectious gastroenteritis and colitis, unspecified (principal); F17.200 Nicotine dependence, unspecified, uncomplicated
CPT/HCPCS: 74177; 80053; 85025; 96361; 96374; 99285; J7030; Q9967; A4216; J2405

== ENCOUNTER 2020-06-18 09:47 | Emergency (ER) | payer MEDICAID, SELFPAY ==
[2020-06-18 09:50] VITALS: BP 116/86; PULSE 125; RESP 17; TEMP 36.6; O2SAT 96; BMI 23.8
[2020-06-18 10:41] VITALS: BP 116/86; PULSE 125; RESP 17; TEMP 36.6; O2SAT 96
[2020-06-18 11:14] LABS: Bacteria 0 SEEN /hpf (None Seen); Mucous, Urine 0 SEEN /hpf (<or=2+); Red Blood Cells-Urine 0 SEEN /hpf (0-5); Squamous Epithelial Cells - UA 0 SEEN /hpf (0-5); White Blood Cells 0 SEEN /hpf (0-5)
[2020-06-18 11:16] LABS: Anion Gap 2 (5-15); BUN 6 mg/dL (7-18); BUN/Creat Ratio 6.9 RATIO (10-20); Calcium,Total 9.2 mg/dL (8.5-10.1); Chloride 104 mmol/L (98-107); Creatinine, Serum 0.87 mg/dL (0.70-1.30); EST Glomerular Filtration Rate 117 mL/min (>60); Est Glom Filt Rate - Afr Amer 141 mL/min (>60); Estimated Creatinine Clearance 133.18 ml/min; Glucose 104 mg/dL (74-106); Potassium 3.5 mmol/L (3.5-5.1); Sodium Level 137 mmol/L (136-145)
--- NOTE | 2020-06-18 11:17 | ED.DCSUM_ITS ---
- ER Visit Summary Date of Service: 06/18/20 Chief Complaint: Rash History of Present Illness: The patient is a 24 M with no primary care physician. Patient reports that he had blood in his stool at the end of the March and was diagnosed with an anal fissure. He reports that the anal fissure has not improved. He reports that in that area there are now raised bumps that occasionally have yellow discharge. He reports that that is puffy and sore. States that the pain is a sharp pain is 8 out of 10 if he sits on it or if the pad that he puts over the area dries. Is 3 out of 10 currently. It is decreased by a warm tub. Patient also reports that he has a rash on his penis that has been present for approximately a month. He denies any penile discharge. He is sexually active. He has not had intercourse since March. He does have insertive anal intercourse. Physical Examination: Vitals: Stable. Afebrile. General: Well-nourished and well-developed. Head: Normocephalic atraumatic. Neck: Supple, no lymphadenopathy. No JVD. Nontender. Cardiovascular: Tachycardic regular rhythm. No murmurs. Respiratory: No respiratory distress. Clear to auscultation bilaterally. Abdominal: Soft, nontender, nondistended, normal bowel sounds. No guarding, rebound, or peritoneal signs. : Approximately 0.5 cm superficial lesions x3 on his penis. One is on the glans of his penis. 2 are on the shaft. There is no surrounding erythema. There are no small vesicular lesions to suggest herpes. Rectal: Multiple flesh colored papules surrounding his rectum consistent with condylomata acuminata. No obvious anal fissure or abscess. Back: Nontender. Extremities: Nontender, no edema. Skin: Normal color, no rash. Neurologic: Alert and oriented ?3. Cranial nerves II through XII are intact. Normal strength and sensation. Psych: Normal affect. Test Results: CBC is normal. Chem-7 shows a BUN of 6. UA is normal. HIV is negative. Gonorrhea and Chlamydia are negative. Syphilis is positive. Emergency Department Course and Treatment: Patient refused pain medications. He is resting comfortably. I discussed with the patient the results of the test that are back. He does not want to wait for the remainder the tests. He was given Rocephin IM and doxycycline p.o. Patient does have a history of an allergy to amoxicillin and does not want penicillin G. He will be covered with doxycycline to treat for chlamydia and also potentially syphilis. Treatment Plan: Patient will be discharged with instructions to follow-up with the [facility] within 1 week for another exam. He is also given the phone number for Dr. Howell, dermatology, for treatment of the condylomata. Return to the emergency department for any worsening symptoms. Disposition: To home in improved and stable condition. Impression: 1.Condylomata acuminata. Addendum: I did call the patient and leave a message that his results had returned. However, I did not believe the results on his answering machine. Addendum: I did speak with the patient and tell him that his HIV test was negative. His syphilis test was positive and that there is a second test pe nding for this. His gonorrhea and chlamydia was negative. He needs to abstain from any sexual intercourse until he is tested negative. He is also to tell any of his sexual partners that he tested positive for syphilis. This note was generated with [employer] dictation software. It may contain incorrect words, spelling, and punctuation that were not noted in review of the chart prior to signing ED Disposition - Plan for ED Patient: Disposition: Home or Assisted Living Instructions: ED STI Male Treated, ED Warts, Genital Prescriptions: Doxycycline 100 mg PO BID #28 capsule Prescription Printed Referrals: Delmi Howell MD [NON-STAFF] - 1-2 Weeks Vickie Morrison [NON-STAFF] - 3-5 Days
[2020-06-18 11:20] LABS: Absolute Lymphocyte Count 1.53 X10^3/uL (0.83-4.51); Absolute Neutrophil Count 4.2 X10^3/uL (2.0-7.7); Basophil# 0.03 X10^3/uL; Basophil% 0.5 % (0-1); Eosinophil# 0.12 X10^3/uL; Eosinophils% 1.9 % (0-5); Hematocrit 41.3 % (40-54); Hemoglobin 13.4 g/dL (13.0-16.5); Lymphocyte # 1.53 X10^3/ul (4.0); Lymphocyte % 23.8 % (19-41); Mean Corp Hgb Conc 32.4 g/dL (32-36); Mean Corpuscular Hgb 28.1 pg (27.0-32.0); Mean Corpuscular Volume 86.6 fL (80-94); Mean Platelet Vol. 8.8 fl (6.2-12.0); Monocyte# 0.51 X10^3/uL; Monocyte% 7.9 % (0-10); NRBC Flagged by Analyzer 0 % (0-5); Neutrophil % 65.4 % (47-70); Platelet Count 334 K/mm3 (150-450); RBC Distribution Width CV 12.5 % (11.6-14.6); RBC Distribution Width SD 39.8 fl (35.1-43.9); Red Blood Count 4.77 M/mm3 (4.6-6.2); White Blood Count 6.4 K/mm3 (4.4-11.0)
[2020-06-18 11:21] LABS: Color, Urine Yellow (Yellow); Glucose, Dipstick Normal (Normal); Ketone-Dipstick Negative (Negative); Leukocyte Esterase-Dipstick Negative /ul (Negative); Nitrite-Dipstick Negative (Negative); Occult Blood-Urine Negative /ul (Negative); Protein-Dipstick Negative (Negative); Specific Gravity, Urine 1.015 (1.002-1.030); Urine Bilirubin Dipstick Negative (Negative); Urine Clarity Cloudy (Clear); Urine Urobilinogen Normal (Normal)
[2020-06-18 11:31] LABS: Amorphous Sediment 4+
[2020-06-18] MEDS: Doxycycline 100 MG CAPSULE PO (12:13)
[2020-06-18] MEDS: Ceftriaxone 500 MG Vial IM (12:14)
[2020-06-18 12:39] VITALS: BP 119/95
[2020-06-18 12:51] LABS: HIV - WCH Non-Reactive (Nonreactive); Syphilis Antibodies Reactive
--- NOTE | 2020-06-18 12:52 | ED.RN ---
syphilis pos called from the lab. dr erickson aware
[2020-06-18 12:53] LABS: Chlamydia Trachomatis by PCR Negative (Negative); Neisserai gonorrhoeae by PCR Negative (Negative); Probe Check PASS; Sample Adequacy Control PASS; Specimen Processing Control PASS
[2020-06-20 08:07] LABS: HEPATITIS B SURFACE AG Negative (Negative); Hepatitis A IgM Antibody Negative (Negative); Hepatitis B Core AB IgM Negative (Negative)
[2020-06-20 12:35] LABS: Hep C Antibodies <0.1 s/co ratio (0.0-0.9)
[2020-06-22 07:07] LABS: HSV 1 By PCR Negative (Negative)
[2020-06-22 11:53] LABS: HSV 2 By PCR Negative (Negative)
== END 2020-06-18 12:30 | disposition home or self-care (01) ==
LOC: ED 10:36
PROVIDERS: Emergency Provider Emergency Medicine
DX: A63.0 Anogenital (venereal) warts (principal)
CPT/HCPCS: 36415; 80048; 80074; 81001; 85025; 86703; 86780; 87491; 87529; 87591; 96372; 99283

== ENCOUNTER 2020-07-15 18:20 | Emergency (ER) | payer MEDICAID, SELFPAY ==
[2020-07-15 18:22] VITALS: BP 132/75; PULSE 85; RESP 17; TEMP 36.4; O2SAT 96; BMI 26.6
--- NOTE | 2020-07-15 18:36 | ED.VIS.GEN ---
History of Present Illness Chief Complaint: Cough Informant: Patient Narrative: 24-year-old male presents out of concern for Covid infection. He tells me that he has been spending time with his mom and she tested positive. Approximately 4 to 5 days ago he developed headache diarrhea congestion sore throat myalgias fatigue and loss of taste. He is does not believe he has had any fevers. He notes coughing fits at times. He states that his work sent him in to make sure he does not have Covid. Past Medical History - Allergies and Home Meds Allergies/Adverse Reactions: Allergies amoxicillin [From Augmentin] Allergy (Verified 07/15/20 18:22) Rash clavulanic acid [From Augmentin] Allergy (Verified 07/15/20 18:22) Rash Primary Care Physician: Care Physician,No Primary [Primary Care Provider] - Past Medical History: None Surgical History: appendectomy Smoking Status: Current every day smoker Drugs: None Review of Systems General: Reports: Chills, Malaise. Denies: Fever, Sweats Eyes: Denies: Visual changes - bilaterally, Diplopia ENT: Reports: Sore throat. Denies: Rhinorrhea Cardiovascular: Denies: Chest pain, Palpitations Respiratory: Reports: Dyspnea, Cough. Denies: Dyspnea on exertion Gastrointestinal: Reports: Nausea. Denies: Abdominal pain, Vomiting, Diarrhea, Melena, Hematochezia Genitourinary: Denies: Dysuria, Hematuria, Frequency Musculoskeletal: Reports: Myalgias. Denies: Back pain, Extremity Pain Skin: Denies: Rash, Wounds Neurological: Reports: Headache. Denies: Weakness, Numbness Physical Exam Vital Signs/Narrative: Vital Signs Temp Pulse Resp BP Pulse Ox 07/15/20 18:22 97.6 F L 85 17 132/75 H 96 Inital Vital Signs reviewed: Yes General: Well nourished, Well developed, No Acute Distress Head: Normocephalic, Atraumatic Eyes: Perrl, EOMI ENT: Moist mucous membranes, No rhinorrhea Neck: Supple, Nontender Cardiovascular: Regular rate, Regular rhythm, No murmurs Respiratory: No distress, CTA bilaterally, Chest nontender Abdomen: Soft, Nontender, Nondistended, Normal bowel sounds Back: Nontender, Normal Inspection Extremities: Nontender, No edema Skin: Normal color, No rash Neurological: Alert, Oriented x3, Cranial nerves II-XII grossly intact, Normal Strength, Normal Sensation Psychological: Normal affect, Normal Mood Diagnostic/Tx/Re-eval - Medical Decision Making My interpretation of the portable chest x-ray is no acute process. Rapid Covid test was obtained and negative. However he is telling me basically a preponderance of symptoms consistent with COVID-19. Advised him that I would recommend that he assume he has it. I can add on the PCR test. Advised him that we will call him later tonight with the results. ED Disposition - Plan for ED Patient: Disposition: Home or Assisted Living Diagnosis: Suspected COVID-19 virus infection Instructions: Coronavirus Disease 2019 (COVID-19): Caring for Yourself or Others Referrals: Jossie Combs MD [STAFF PHYSICIAN] - (As needed for primary care) Additional Instructions: I would assume that you are positive for COVID-19 based on the symptoms that you are telling me. We will add on the Covid PCR and if positive we will call you when the results are back
[2020-07-15 18:42] VITALS: O2SAT 99
[2020-07-15 18:45] VITALS: BP 132/75; PULSE 72; RESP 16; TEMP 36.4; O2SAT 99
--- NOTE | 2020-07-15 18:53 | RAD_ITS ---
STUDY: X-RAY CHEST REASON FOR EXAM: Male, 24 years old. Cough. TECHNIQUE: Single AP portable view of the chest. COMPARISON: None. FINDINGS: The lungs are clear and expanded. There is no demonstrated pleural abnormality. Normal size heart. Normal mediastinum and toni. Normal visualized pulmonary arteries. Normal visualized aortic arch and descending thoracic aorta. Normal visualized thoracic spine. Normal visualized ribs, clavicles, and shoulders. There is no demonstrated abnormality of the visualized soft tissue structures of the upper abdomen. RAD/Chest 1 View (Portable) IMPRESSION: Normal x-ray examination of the chest. Electronically Signed: Alan Landis DO at 19:47 EDT Tel [phone], Service support ,
[2020-07-15 19:51] VITALS: BP 107/58; PULSE 76; RESP 17; TEMP 37.1; O2SAT 100
== END 2020-07-15 20:00 | disposition home or self-care (01) ==
PROVIDERS: Emergency Provider Emergency Medicine
DX: Z20.822 Contact with and (suspected) exposure to COVID-19 (principal); F17.200 Nicotine dependence, unspecified, uncomplicated
CPT/HCPCS: 71045; 87426; 87635; 99282; U0002

== ENCOUNTER 2020-08-01 01:02 | Emergency (ER) | payer MEDICAID, SELFPAY ==
[2020-08-01 01:04] VITALS: BP 141/92; PULSE 93; RESP 16; TEMP 36.4; O2SAT 96; BMI 25.9
--- NOTE | 2020-08-01 01:37 | EX.ED.DYSGE1 ---
HPI History of Present Illness Chief Complaint: General Illness Informant: patient Onset/Context/Timing Onset: Yesterday Quality: Bumps, discolored Location: Genital Worsened by: Nothing Relieved by: Nothing Narrative Narrative: Patient presents for possible syphilis. Patient states he was tested back in May for STDs. Patient states that he tested positive for syphilis. Patient states he is unsure if he may have missed 1-2 doses of his antibiotics. Patient states that he noticed some bumps on the tip of his penis. Patient denies any discharge or drainage. Patient denies any dysuria or hematuria. PFSH PFSH Home Medications NK 08/01/20 [History Last Taken Unknown] Allergy/AdvReac Type Severity Reaction Status Date / Time amoxicillin [From Augmentin] Allergy Rash Verified 08/01/20 01:03 clavulanic acid Allergy Rash Verified 08/01/20 01:03 [From Augmentin] Surgical History History of appendectomy Social History Smoking Status: Current every day smoker ROS ROS ED Constitutional Constitutional ED: Reports chills and subjective; Denies fever(s) Eyes Eyes: Reports change in vision; Denies blurry vision ENT ENT ED: Denies rhinorrhea or sore throat Cardiovascular Cardiovascular: Denies chest pain or palpitations Respiratory/Chest Respiratory/Chest: Reports cough; Denies dyspnea Gastrointestinal Gastrointestinal: Denies nausea or vomiting Genitourinary Genitourinary ED: Denies dysuria or hematuria Musculoskeletal Musculoskeletal: Reports neck pain; Denies back pain Neurologic Neurologic: Reports headache(s); Denies paresthesias or weakness Hematologic/Lymphatic Hematologic/Lymphatic: Reports easy bruising; Denies easy bleeding Allergic/Immunologic Allergic/Immunologic ED: Reports tongue swelling; Denies urticaria EXAM Physical Exam Const Vital Signs: 08/01/20 01:04 Temperature 97.5 F L Temperature Source Temporal Pulse Rate 93 Respiratory Rate 16 Blood Pressure 141/92 H Blood Pressure Mean 108 Pulse Ox 96 Oxygen Delivery Method Room Air Positive well nourished and well developed General Appearance ED: well developed Neck supple and no JVD Resp normal respiratory effort and clear to auscultation bilaterally Cardio regular rate and regular rhythm GI normal to inspection, nondistended, normoactive bowel sounds and non-tender Palpation: soft Penis: circumcised and other There is a mild erythematous lesion on the glans penis. ; Negative for pustules, vesicles, ulceration or discharge Meatus: meatus normal Neuro oriented x3, CN's II-XII intact bilaterally and no sensory deficits noted Sensorium / Orientation: alert Motor Exam: strength 5/5 throughout Psych mental status grossly normal MDM MDM MDM Narrative Medical decision making narrative: GC and Chlamydia cultures were obtained and are pending. Syphilis antibodies were obtained and are pending. Patient was given Rocephin and 2 g of Zithromax. Patient was instructed to follow-up with his primary care physician in 5 to 7 days. Patient understood and was agreeable with the plan. All questions were answered. Discharge Plan Triage Chief Complaint: General Illness ED Provider: Jerome Wood Dx/Rx/DC Orders Clinical Impression: Encounter for screening for infections with predominantly sexual mode of transmission Instructions: ED Testing for Suspected STI Prescriptions: No Action NK RF: 0 Primary Care Provider: Care Physician,No Primary Referrals: Vickie Morrison [NON-STAFF] - 3-5 Days Care Physician,No Primary [Primary Care Provider] - Disposition Disposition: Home, self care
[2020-08-01] MEDS: Azithromycin 250 MG Tablet 2000 MG PO (01:51)
[2020-08-01] MEDS: Ceftriaxone 500 MG Vial 250 MG IM (01:54)
[2020-08-01 02:26] VITALS: BP 132/70; PULSE 74; RESP 17; TEMP 36.6; O2SAT 97
[2020-08-01 03:51] LABS: Chlamydia Trachomatis by PCR Negative (Negative); Neisserai gonorrhoeae by PCR Negative (Negative); Probe Check PASS; Sample Adequacy Control PASS; Specimen Processing Control PASS
[2020-08-01 08:26] LABS: Syphilis Antibodies Reactive
== END 2020-08-01 02:29 | disposition home or self-care (01) ==
PROVIDERS: Emergency Provider Emergency Medicine
DX: Z11.3 Encounter for screening for infections with a predominantly sexual mode of transmission (principal); F17.200 Nicotine dependence, unspecified, uncomplicated
CPT/HCPCS: 86780; 87491; 87591; 96372; 99283

== ENCOUNTER 2020-10-09 15:16 | Emergency (ER) | payer MEDICAID, SELFPAY ==
[2020-10-09 15:18] VITALS: BP 120/69; PULSE 117; RESP 18; TEMP 35.8; O2SAT 95; BMI 28.0
[2020-10-09 16:00] VITALS: BP 120/69; PULSE 117; RESP 18; TEMP 35.8; O2SAT 95
--- NOTE | 2020-10-09 16:06 | EX.ED.DYSGE1 ---
HPI History of Present Illness Chief Complaint: Abd Pain Narrative Narrative: 31-year-old transgender female patient states she is had intermittent left-sided abdominal pain for a year. It was worse today. It is currently resolving itself. Patient does admit to constipation for the last 3 days. She is not tried any laxatives. She is not had fever or chills. She is not had nausea or vomiting. Distant history of appendectomy. No history of bowel obstruction. States she did not go to work today and needs a work note. PFSH PFS Medical History [id number] transgender person Home Medications NK 08/01/20 [History Last Taken Unknown] Allergy/AdvReac Type Severity Reaction Status Date / Time amoxicillin [From Augmentin] Allergy Rash Verified 08/01/20 01:03 clavulanic acid Allergy Rash Verified 08/01/20 01:03 [From Augmentin] Surgical History History of appendectomy Social History Smoking Status: Current every day smoker tobacco type: cigarettes ROS ROS ED Constitutional Constitutional ED: Denies chills or fever(s) Eyes Eyes: Denies blurry vision or diplopia ENT ENT ED: Denies rhinorrhea or sore throat Cardiovascular Cardiovascular: Denies chest pain or palpitations Respiratory/Chest Respiratory/Chest: Denies cough or dyspnea Gastrointestinal Gastrointestinal: Reports abdominal pain and constipation; Denies diarrhea, nausea or vomiting Genitourinary Genitourinary ED: Denies dysuria or hematuria Musculoskeletal Musculoskeletal: Denies arthralgias or myalgias Integumentary Denies abscess or rash Neurologic Neurologic: Denies headache(s) or paresthesias EXAM Physical Exam Const Vital Signs: 10/09/20 15:18 10/09/20 16:00 Temperature 96.5 F L 96.5 F L Temperature Source Temporal Temporal Pulse Rate 117 H 117 H Respiratory Rate 18 18 Blood Pressure 120/69 120/69 Blood Pressure Mean 86 86 Pulse Ox 95 95 Oxygen Delivery Method Room Air Room Air Positive well nourished General Appearance ED: NAD HEENT Reports moist mucous membranes trauma Eyes PERRL and EOMs intact bilaterally Resp normal respiratory effort and clear to auscultation bilaterally Cardio regular rate and regular rhythm GI GI Narrative: Mild left lower quadrant tenderness. Abdomen nonperitoneal. No CVA tenderness. Extremity normal to inspection General Extremety ED: Negative for edema General Extremity: Negative for edema Neuro oriented x3 and CN's II-XII intact bilaterally Sensorium / Orientation: alert Psych mental status grossly normal Skin no rashes or lesions noted and no wounds MDM MDM MDM Narrative Medical decision making narrative: Patient states that she called off of work today because she had some abdominal pain which is now resolving. Patient does states she is been constipated for 3 days. She is offered a lab work-up as well as imaging however she declines. She states she will try laxatives at home. She requests a work note. I do not believe the patient's abdominal exam is very remarkable. Patient will return if her symptoms persist. Impression: 1. Abdominal pain 2. Constipation history Discharge Plan Triage Chief Complaint: Abd Pain ED Provider: Obey Lee Dx/Rx/DC Orders Instructions: ED Constipation (Adult) Prescriptions: No Action NK RF: 0 Stand Alone Forms: ED Work / School Excuse Primary Care Provider: Care Physician,No Primary Referrals: Jerome Bean MD [STAFF PHYSICIAN] - As Needed Care Physician,No Primary [Primary Care Provider] - Disposition Disposition: Home, Self Care
== END 2020-10-09 16:27 | disposition home or self-care (01) ==
LOC: ED 16:24
PROVIDERS: Emergency Provider Student in an Organized Health Care Education/Training Program
DX: K59.00 Constipation, unspecified (principal); R10.32 Left lower quadrant pain; F17.210 Nicotine dependence, cigarettes, uncomplicated
CPT/HCPCS: 99282

== ENCOUNTER 2020-12-10 16:45 | Emergency (ER) | payer MEDICAID, SELFPAY ==
[2020-12-10 16:46] VITALS: BP 120/76; PULSE 84; RESP 16; TEMP 37.1; BMI 26.6
--- NOTE | 2020-12-10 18:05 | EDS_ITS ---
HPI History of Present Illness Chief Complaint: Lower Extremity Injury Informant: patient Narrative Narrative: 24-year-old presents for the evaluation of multiple joint pain. Patient tells me that they have had chronic left knee pain. Recently however is now gone to both hips both knees and both ankles. They have identified some bruising around the left knee without any known injury. They note that the urine is orange. Muscles are aching. The patient notes they do not have a primary care doctor. Patient denies being on any medications other than Wellbutrin which has been a newer medication. PFSH PFSH Medical History [id number] transgender person Home Medications bupropion HCl 150 mg PO DAILY 12/10/20 [History Last Taken Unknown] Allergy/AdvReac Type Severity Reaction Status Date / Time amoxicillin [From Augmentin] Allergy Rash Verified 12/10/20 16:50 clavulanic acid Allergy Rash Verified 12/10/20 16:50 [From Augmentin] Surgical History History of appendectomy Social History (Updated 12/10/20 @ 18:[address] Carlos Gallego DO) current gender identity: trans [id number] Smoking Status: Current every day smoker tobacco type: cigarettes ROS ROS ED Constitutional Constitutional ED: Denies chills or weight loss Eyes Eyes: Denies change in vision or diplopia ENT ENT ED: Denies ear pain, rhinorrhea or sore throat Cardiovascular Cardiovascular: Denies chest pain, orthopnea, palpitations or racing heartbeat Respiratory/Chest Respiratory/Chest: Denies cough, dyspnea or orthopnea Gastrointestinal Gastrointestinal: Denies abdominal pain, diarrhea, nausea or vomiting Genitourinary Genitourinary ED: Denies dysuria, hematuria or urinary frequency Musculoskeletal Musculoskeletal: Reports arthralgias and myalgias Integumentary Denies abscess or rash Neurologic Neurologic: Denies headache(s) or weakness Psychiatric Psychiatric: Denies anxiety, depression, suicidal ideation or suicidal thoughts Endocrine Endocrinology: Denies polydipsia, polyphagia or polyuria Allergic/Immunologic Allergic/Immunologic ED: Denies mouth swelling, tongue swelling or urticaria EXAM Physical Exam Const Vital Signs: 12/10/20 16:46 Temperature 98.8 F Temperature Source Temporal Pulse Rate 84 Respiratory Rate 16 Blood Pressure 120/76 Blood Pressure Mean 90 Positive well nourished and well developed General Appearance ED: well developed HEENT Reports normocephalic, head/scalp atraumatic and moist mucous membranes Eyes PERRL and EOMs intact bilaterally Neck no lymphadenopathy, supple and no JVD Resp normal respiratory effort and clear to auscultation bilaterally Cardio regular rate, regular rhythm and no murmurs GI normal to inspection, nondistended, normoactive bowel sounds and non-tender Palpation: soft Back/Spine no CVA tenderness and normal ROM Extremity normal to inspection General Extremety ED: Negative for edema General Extremity: Negative for edema Neuro oriented x3 and CN's II-XII intact bilaterally Sensorium / Orientation: alert Motor Exam: strength 5/5 throughout Psych mental status grossly normal Mood & Affect: Negative for depressed or tearful Skin no rashes or lesions noted and no wounds MDM MDM MDM Narrative Medical decision making narrative: Patient's labs showed a white count of 4. Sed rate of 3. C-reactive protein 9.92. Glucose 133. Patient I do not think necessitates imaging. This is multiple joints that are now hurting him. He may need a rheumatologic evaluation. I will refer him to primary care would raulito mmend anti-inflammatories Lab Data Attestation: I reviewed the patient's lab results. Labs: Laboratory Results - last 24 hr 12/10/20 12/10/20 18:05 18:05 WBC 4.0 L RBC 4.58 L Hgb 13.6 Hct 41.7 MCV 91.0 MCH 29.7 MCHC 32.6 RDW Std Deviation 41.0 RDW Coeff of Alphonse 12.3 Plt Count 188 MPV 9.9 Immature Gran % (Auto) 0.500 Neut % (Auto) 53.6 Lymph % (Auto) 33.5 [place] % (Auto) 11.8 H Eos % (Auto) 0.3 Baso % (Auto) 0.3 Absolute Neuts (auto) 2.1 Absolute Lymphs (auto) 1.33 Nucleated RBC % 0 ESR 3 Sodium 138 Potassium 3.5 Chloride 105 Carbon Dioxide 28.0 Anion Gap 5 BUN 11 Creatinine 0.96 Estim Creat Clear Calc 116.77 Est GFR (MDRD) Af Amer 126 Est GFR (MDRD) Non-Af 104 BUN/Creatinine Ratio 11.5 Glucose 133 H Calcium 8.2 L Total Bilirubin 0.20 AST 17 ALT 20 Alkaline Phosphatase 54 Total Creatine Kinase 133 C-React Prot Ext Range 9.92 H Total Protein 6.6 Albumin 3.2 Globulin 3.4 Albumin/Globulin Ratio 0.9 Discharge Plan Triage Chief Complaint: Lower Extremity Injury ED Provider: Carlos Gallego Dx/Rx/DC Orders Clinical Impression: Arthralgia Prescriptions: No Action bupropion HCl 150 mg tablet extended release 24 hr 150 mg PO DAILY RF: 0 Primary Care Provider: Care Physician,No Primary Referrals: Care Physician,No Primary [Primary Care Provider] -
[2020-12-10] MEDS: 0.9% Normal Saline 1,000 ML 999 ML IV (18:08)
[2020-12-10 18:17] LABS: Absolute Lymphocyte Count 1.33 X10^3/uL (0.83-4.51); Absolute Neutrophil Count 2.1 X10^3/uL (2.0-7.7); Basophil# 0.01 X10^3/uL; Basophil% 0.3 % (0-1); Eosinophil# 0.01 X10^3/uL; Eosinophils% 0.3 % (0-5); Hematocrit 41.7 % (40-54); Hemoglobin 13.6 g/dL (13.0-16.5); Lymphocyte # 1.33 X10^3/ul (0.83-4.51); Lymphocyte % 33.5 % (19-41); Mean Corp Hgb Conc 32.6 g/dL (32-36); Mean Corpuscular Hgb 29.7 pg (27.0-32.0); Mean Platelet Vol. 9.9 fl (6.2-12.0); Monocyte# 0.47 X10^3/uL; Monocyte% 11.8 % (0-10); NRBC Flagged by Analyzer 0 % (0-5); Neutrophil # 2.13 X10^3/uL (2.7-7.7); Neutrophil % 53.6 % (47-70); Platelet Count 188 K/mm3 (150-450); RBC Distribution Width CV 12.3 % (11.6-14.6); Red Blood Count 4.58 M/mm3 (4.6-6.2)
[2020-12-10 18:30] LABS: ALB/GLOB Ratio 0.9 RATIO (0.9-2.4); AST(SGOT) 17 U/L (15-37); Alanine Aminotransfer ALT/SGPT 20 U/L (16-61); Albumin, Serum 3.2 g/dL (3.2-5.0); Alkaline Phosphatase 54 U/L (45-117); Anion Gap 5 (5-15); BUN 11 mg/dL (7-18); BUN/Creat Ratio 11.5 RATIO (10-20); CPK Total, Creatine Kinase 133 U/L (39-308); CRP 9.92 mg/L (0.0-3.0); Calcium,Total 8.2 mg/dL (8.5-10.1); Chloride 105 mmol/L (98-107); Creatinine, Serum 0.96 mg/dL (0.70-1.30); EST Glomerular Filtration Rate 104 mL/min (>60); Est Glom Filt Rate - Afr Amer 126 mL/min (>60); Estimated Creatinine Clearance 116.77 ml/min; Globulin 3.4 g/dL (2.2-4.2); Glucose 133 mg/dL (74-106); Potassium 3.5 mmol/L (3.5-5.1); Protein, Total 6.6 g/dL (6.4-8.2); Sodium Level 138 mmol/L (136-145)
[2020-12-10 18:37] LABS: Erythrocyte Sedimentation Rate 3 mm/hr (0-20)
[2020-12-10 19:21] VITALS: RESP 14
== END 2020-12-10 19:22 | disposition home or self-care (01) ==
PROVIDERS: Emergency Provider Emergency Medicine
DX: M25.562 Pain in left knee (principal); M25.561 Pain in right knee; M25.552 Pain in left hip; M25.551 Pain in right hip; F17.210 Nicotine dependence, cigarettes, uncomplicated; G89.29 Other chronic pain; Z79.899 Other long term (current) drug therapy
CPT/HCPCS: 80053; 82550; 85025; 85652; 86140; 96360; 99283; J7030; A4216

== ENCOUNTER 2021-02-12 06:13 | Emergency (ER) | payer MEDICAID, SELFPAY ==
[2021-02-12 06:16] VITALS: BP 131/74; PULSE 991; RESP 16; TEMP 36.1; O2SAT 98; BMI 28.3
--- NOTE | 2021-02-12 06:19 | CT_ITS ---
STUDY: CT ABDOMEN AND PELVIS WITHOUT CONTRAST REASON FOR EXAM: Male, 25 years old. Pain RADIATION DOSAGE (If Supplied By Facility): CTDIvol = ( 7.95 ) mGy, DLP = ( 468.57 ) mGycm TECHNIQUE: Transaxial images were obtained from the dome of the diaphragm to the symphysis pubis without oral contrast, and without intravenous contrast. Sagittal and coronal images were reconstructed. Individualized dose optimization techniques were used for this CT. COMPARISON: None. FINDINGS: The visualized lung bases are unremarkable. The visualized portions of the heart are within normal limits. Normal liver. Normal gallbladder and extrahepatic biliary system. Normal spleen. Normal pancreas. Normal bilateral adrenal glands. There is 5 mm stone in the proximal right ureter with resultant moderate right hydronephrosis. Normal left kidney. Normal visualized stomach. Normal small intestine. Normal colon. There are surgical clips in the region of the appendix consistent with a prior appendectomy. Normal abdominal aorta. Normal inferior vena cava. Normal retroperitoneum. Normal urinary bladder. Normal abdominal wall. Chronic bilateral pars defect of L5 without spondylolisthesis. CT/Abdomen/Pelvis without Cont IMPRESSION: There is 5 mm stone in the proximal right ureter with resultant moderate right hydronephrosis. Electronically Signed: Judd Cruz MD at 7:23 EST Tel , Service support ,
--- NOTE | 2021-02-12 06:22 | EDS_ITS ---
HPI HPI - GI History of Present Illness Chief Complaint: Flank Pain Informant: patient Abdominal Pain/Flank Pain Onset: Days Timing: Intermittent Quality: Sharp Location: RLQ and Right Flank Current Severity: Moderate Maximum Severity: Severe Worsened by: Nothing Relieved by: Nothing Nausea/Vomiting/Emesis GI Symptom: Positive for Nausea and Vomiting Onset: Today Severity: Mild Diarrhea/Melena/Hematochezia GI Symptom: Negative for Diarrhea, Melena and Hematochezia Associated Symptoms Associated Symptoms: Negative for Dysuria, Frequency, Hematuria and Urgency Narrative Narrative: 24-year-old male history of prior appendectomy. States he had right flank pain since last week its been intermittent. He want to a different emergency department and was told he had a 4 x 4 meter right ureteral calculi. She was IV Toradol. And given a prescription for naproxen. States pain is now worse and he had nausea vomiting today. Denies fever or chills. No hematuria dysuria. No weight loss. Prior similar symptoms: No Recent Illness/Hospitalization: No PFSH PFSH Medical History [id number] transgender person Home Medications bupropion HCl 150 mg PO DAILY 12/10/20 [History Last Taken Unknown] prednisone 60 mg PO DAILY #15 tablet 12/10/20 [Rx Last Taken Unknown] hydrocodone-acetaminophen 1 tab PO Q4H PRN 3 Days #14 tab 02/12/21 [Rx Last Taken Unknown] Allergy/AdvReac Type Severity Reaction Status Date / Time amoxicillin [From Augmentin] Allergy Rash Verified 02/12/21 06:14 clavulanic acid Allergy Rash Verified 02/12/21 06:14 [From Augmentin] Surgical History History of appendectomy Social History Smoking Status: Current every day smoker tobacco type: cigarettes ROS ROS ED ROS Narrative I flank pain. Nausea and vomiting. Review of Systems ROS Unobtainable: Denies due to encephalopathy Constitutional Constitutional ED: Denies fever(s) ENT ENT ED: Denies ear pain Cardiovascular Cardiovascular: Denies chest pain Respiratory/Chest Respiratory/Chest: Denies cough or dyspnea Gastrointestinal Gastrointestinal: Reports abdominal pain, nausea and vomiting; Denies diarrhea Genitourinary Genitourinary ED: Denies dysuria or hematuria Musculoskeletal Musculoskeletal: Denies myalgias Integumentary Denies rash Neurologic Neurologic: Denies headache(s) Psychiatric Psychiatric: Denies depression Endocrine Endocrinology: Denies polyuria Hematologic/Lymphatic Hematologic/Lymphatic: Denies easy bruising Allergic/Immunologic Allergic/Immunologic ED: Denies urticaria EXAM Physical Exam Narrative Exam Narrative: 25-year-old transgender patient. Complaining of right flank nominal pain. H EENT exam unremarkable. Neck nontender. Lungs clear to auscultation bilaterally. Heart regular rhythm no murmur. Abdomen soft nondistended normal bowel sounds no peritoneal signs mildly tender on the right side. No organomegaly or masses. No distention. No obstruction. Also reproducible right flank tenderness. No ecchymosis or bruising no signs of trauma. Moving all 4 extremities. Neurologically the patient is awake and alert without focal motor deficits. Const Vital Signs: 02/12/21 06:16 Temperature 97.0 F L Temperature Source Temporal Pulse Rate 991 H Respiratory Rate 16 Blood Pressure 131/74 H Blood Pressure Mean 93 Pulse Ox 98 Oxygen Delivery Method Room Air Positive well nourished and well developed; Negative for obese, cachectic, contractures or unkempt General Appearance ED: well developed and NAD; Negative for unkempt, cachectic, contractures or pallor Nutritional Appearance: Negative for cachectic or obese HEENT Reports moist mucous membranes normocephalic and atraumatic; Negative for trauma or tenderness Eyes PERRL and EOMs intact bilaterally Neck no lymphadenopathy, supple and no JVD General: Negative for tenderness Resp normal respiratory effort and clear to auscultation bilaterally Auscultation: Negative for rales, rhonchi or wheezes Cardio regular rate, regular rhythm, S1 normal heart sound, S2 normal heart sound and no murmurs GI non-distended and no masses; Negative for non-tender Inspection: Negative for abdominal distention Auscultation: normoactive bowel sounds; Negative for hyperactive bowel sounds or hypoactive bowel sounds Palpation: soft and tender; Negative for guarding, rigid or rebound tenderness present Back/Spine no CVA tenderness Back/Spine Narrative: Mild right flank tenderness. Extremity full ROM General Extremety ED: Negative for edema or tenderness General Extremity: Negative for edema Neuro moves all extremities Sensorium / Orientation: alert, oriented to person, oriented to place and oriented to time; Negative for orientation impaired Motor Exam: strength 5/5 throughout Psych mental status grossly normal and thought process normal Appearance: Negative for unkempt Skin no wounds General Skin Exam: Negative for jaundice or pallor Lesions: no lesions Rashes: no rashes MDM MDM MDM Narrative Medical decision making narrative: Transgender patient with right flank pain. Treated with IV morphine, Toradol fluids. Screening labs and CAT scan being obtained. Repeat exam patient is doing well at 7:42 AM. Will be discharged home with [place] for pain. Continue on anti-inflammatory also. Follow-up with urologist. Return if intractable pain, fever or vomiting. Lab Data Attestation: I reviewed the patient's lab results. Lab results narrative: CBC shows white count 10.9. Hemoglobin 14. Platelets 327. Electrolytes unremarkable gap of 6 normal BUN and creatinine. Liver enzymes normal. Urinalysis 3+ bacteria but no nitrates no white cells or red cells. CT flank study shows a 5 mm stone on the right with hydronephrosis and located in the proximal ureter. This is read by the radiologist and reviewed by me. Labs: Laboratory Results - last 24 hr 02/12/21 02/12/21 02/12/21 06:18 06:18 06:34 WBC 10.9 RBC 4.75 Hgb 14.1 Hct 41.7 MCV 87.8 MCH 29.7 MCHC 33.8 RDW Std Deviation 39.1 RDW Coeff of Alphonse 12.1 Plt Count 327 MPV 9.4 Immature Gran % (Auto) 0.600 Neut % (Auto) 58.4 Lymph % (Auto) 30.9 [place] % (Auto) 6.9 Eos % (Auto) 2.5 Baso % (Auto) 0.7 Absolute Neuts (auto) 6.4 Absolute Lymphs (auto) 3.37 Nucleated RBC % 0 Sodium 138 Potassium 4.5 Chloride 106 Carbon Dioxide 26.0 Anion Gap 6 BUN 16 Creatinine 1.08 Estim Creat Clear Calc 102.92 Est GFR (MDRD) Af Amer 109 Est GFR (MDRD) Non-Af 90 BUN/Creatinine Ratio 14.8 Glucose 101 Calcium 8.8 Total Bilirubin 0.20 AST 13 L ALT 25 Alkaline Phosphatase 77 Total Protein 7.0 Albumin 3.3 Globulin 3.7 Albumin/Globulin Ratio 0.9 Urine Color Yellow Urine Clarity Clear Urine pH 6.5 Ur Specific [place] 1.015 Urine Protein Negative Urine Glucose (UA) Normal Urine Ketones Negative Urine Occult Blood 25 H Urine Nitrite Negative Urine Bilirubin Negative Urine Urobilinogen Normal Ur Leukocyte Esterase Negative Urine RBC 0-5 SEEN Urine WBC 0-5 SEEN Ur Squamous Epith Cells 0 SEEN Amorphous Sediment 2+ Urine Bacteria 3+ Urine Mucus 0 SEEN Radiography Diagnostic Testing: Clinical Impression(s) from Imaging Studies Abdomen/Pelvis CT 02/12/21 06:19 IMPRESSION: There is 5 mm stone in the proximal right ureter with resultant moderate right hydronephrosis. Electronically Signed: Judd Cruz MD at 7:23 EST Tel , Service support , Discharge Plan Triage Chief Complaint: Flank Pain ED Provider: Kike Romero Dx/Rx/DC Orders Clinical Impression: Acute right flank pain, Transgender, Kidney stone Instructions: ED Kidney Stone w/ Colic Prescriptions: New hydrocodone-acetaminophen 5-325 mg tablet 1 tab PO Q4H PRN (Reason: pain) 3 Days Qty: 14 RF: 0 No Action bupropion HCl 150 mg tablet extended release 24 hr 150 mg PO DAILY RF: 0 prednisone 20 MG tablet 60 mg PO DAILY Qty: 15 RF: 0 Primary Care Provider: Care Physician,No Primary Referrals: Charles Kelly MD [STAFF PHYSICIAN] - As soon as possible Care Physician,No Primary [Primary Care Provider] - Activity Restrictions/Additional Instructions: You have a kidney stone on the right between your kidney or bladder. It is about 5 mm in size. This should pass normally developed get stuck until 8 mm. Motrin and then [place] for pain. Plenty of fluids. Fruits, vegetables and fiber and stool softener to prevent constipation. Return if fever or intractable pain or intractable vomiting. Follow-up with the urologist I referred you to Dr. Sumit Kelly. Disposition Disposition: Home, Self Care
[2021-02-12 06:25] LABS: Absolute Lymphocyte Count 3.37 X10^3/uL (0.83-4.51); Absolute Neutrophil Count 6.4 X10^3/uL (2.0-7.7); Basophil# 0.08 X10^3/uL; Basophil% 0.7 % (0-1); Eosinophil# 0.27 X10^3/uL; Eosinophils% 2.5 % (0-5); Hematocrit 41.7 % (40-54); Hemoglobin 14.1 g/dL (13.0-16.5); Lymphocyte # 3.37 X10^3/ul (0.83-4.51); Lymphocyte % 30.9 % (19-41); Mean Corp Hgb Conc 33.8 g/dL (32-36); Mean Corpuscular Hgb 29.7 pg (27.0-32.0); Mean Corpuscular Volume 87.8 fL (80-94); Mean Platelet Vol. 9.4 fl (6.2-12.0); Monocyte# 0.75 X10^3/uL; Monocyte% 6.9 % (0-10); NRBC Flagged by Analyzer 0 % (0-5); Neutrophil # 6.37 X10^3/uL (2.7-7.7); Neutrophil % 58.4 % (47-70); Platelet Count 327 K/mm3 (150-450); RBC Distribution Width CV 12.1 % (11.6-14.6); RBC Distribution Width SD 39.1 fl (35.1-43.9); Red Blood Count 4.75 M/mm3 (4.6-6.2); White Blood Count 10.9 K/mm3 (4.4-11.0)
[2021-02-12] MEDS: Ondansetron 4 MG/2 ML Vial IV (06:26)
[2021-02-12] MEDS: Ketorolac 30 MG/ML Syringe IV (06:26)
[2021-02-12] MEDS: 0.9% Normal Saline 1,000 ML 1000 ML IV (06:26)
[2021-02-12] MEDS: morphine 8 MG/ML Syringe IV (06:26)
[2021-02-12 06:39] LABS: Mucous, Urine 0 SEEN /hpf (<or=2+); Squamous Epithelial Cells - UA 0 SEEN /hpf (0-5)
[2021-02-12 06:40] LABS: Color, Urine Yellow (Yellow); Glucose, Dipstick Normal (Normal); Ketone-Dipstick Negative (Negative); Leukocyte Esterase-Dipstick Negative /ul (Negative); Nitrite-Dipstick Negative (Negative); Occult Blood-Urine 25 /ul (Negative); Protein-Dipstick Negative (Negative); Specific Gravity, Urine 1.015 (1.002-1.030); Urine Bilirubin Dipstick Negative (Negative); Urine Clarity Clear (Clear); Urine Urobilinogen Normal (Normal); Urine pH 6.5 (5.0 - 8.0)
[2021-02-12 06:41] LABS: ALB/GLOB Ratio 0.9 RATIO (0.9-2.4); AST(SGOT) 13 U/L (15-37); Alanine Aminotransfer ALT/SGPT 25 U/L (16-61); Albumin, Serum 3.3 g/dL (3.2-5.0); Alkaline Phosphatase 77 U/L (45-117); Anion Gap 6 (5-15); BUN 16 mg/dL (7-18); BUN/Creat Ratio 14.8 RATIO (10-20); Calcium,Total 8.8 mg/dL (8.5-10.1); Chloride 106 mmol/L (98-107); Creatinine, Serum 1.08 mg/dL (0.70-1.30); EST Glomerular Filtration Rate 90 mL/min (>60); Est Glom Filt Rate - Afr Amer 109 mL/min (>60); Estimated Creatinine Clearance 102.92 ml/min; Globulin 3.7 g/dL (2.2-4.2); Glucose 101 mg/dL (74-106); Potassium 4.5 mmol/L (3.5-5.1); Sodium Level 138 mmol/L (136-145)
[2021-02-12 06:46] LABS: Amorphous Sediment 2+; Bacteria 3+ /hpf (None Seen); Red Blood Cells-Urine 0-5 SEEN /hpf (0-5); White Blood Cells 0-5 SEEN /hpf (0-5)
[2021-02-12] MEDS: 0.9% Normal Saline 1,000 ML 999 ML IV (06:57)
[2021-02-12 07:55] VITALS: BP 127/63; PULSE 74; RESP 15; O2SAT 98
== END 2021-02-12 07:58 | disposition home or self-care (01) ==
PROVIDERS: Emergency Provider Emergency Medicine
DX: N13.2 Hydronephrosis with renal and ureteral calculous obstruction (principal); F17.210 Nicotine dependence, cigarettes, uncomplicated; Z79.52 Long term (current) use of systemic steroids
CPT/HCPCS: 74176; 80053; 81001; 85025; 96361; 96374; 96375; 99284; J7030; A4216; J2405

== ENCOUNTER 2021-04-06 18:20 | Emergency (ER) | payer MEDICAID, SELFPAY ==
[2021-04-06 18:21] VITALS: BP 113/63; PULSE 88; RESP 16; TEMP 36; O2SAT 95; BMI 27.3
--- NOTE | 2021-04-06 19:13 | EX.ED.VIS.FL ---
HPI History of Present Illness Chief Complaint: Cold Sx Informant: patient Onset/Context/Timing Onset: Yesterday Context: Sudden Onset Timing: Continuous Quality: Positive for Dyspnea on exertion Current Severity: Mild Maximum Severity: Moderate Worsened by: Exertion and Coughing; Not Worsened By Lying flat Relieved by: Nothing Associated Symptoms Associated Symptoms: Positive for Cough, Rhinorrhea, Post-nasal drainage, Sore throat, Fever, Chills, Sweats and - Other (Myalgias, arthralgias and nausea and vomiting); Negative for Bloody Sputum, White sputum, Clear sputum, Ear pain and Subjective Chest Pain: Positive for None Narrative Narrative: Patient is a 25-year-old male who dresses at a woman and presents with chief complaint of upper respiratory symptoms. He has had ill contacts. He is not vaccinated. He does report headache, rhinorrhea, congestion postnasal drainage. He does endorse shortness alert. He does endorse shortness of breath and cough. Does have dyspnea on exertion. He does report rigors with documented temperature of 101.3. He does endorse nausea and vomiting. He denies diarrhea today. He had diarrhea yesterday. He denies rash. He denies neck pain or neck stiffness. He denies photophobia. He denies decreased hearing or ringing in his ears. He denies history of environmental allergies. PFSH [facility] Medical History [id number] transgender person no medical history (Patient is not on hormonal therapy) Home Medications bupropion HCl 150 mg PO DAILY 12/10/20 [History Last Taken Unknown] prednisone 60 mg PO DAILY #15 tablet 12/10/20 [Rx Last Taken Unknown] hydrocodone-acetaminophen 1 tab PO Q4H PRN 3 Days #14 tab 02/12/21 [Rx Last Taken Unknown] Allergy/AdvReac Type Severity Reaction Status Date / Time amoxicillin [From Augmentin] Allergy Rash Verified 04/06/21 18:24 clavulanic acid Allergy Rash Verified 04/06/21 18:24 [From Augmentin] Surgical History History of appendectomy Social History (Updated 04/06/21 @ 19:[address] Lucio Crowley MD) household members: none Smoking Status: Current every day smoker tobacco type: cigarettes substance use type: does not use ROS ROS ED Constitutional Constitutional ED: Reports chills, fever(s) and sweats; Denies weight loss Eyes Eyes: Denies blurry vision, change in vision or diplopia ENT ENT ED: Reports rhinorrhea and sore throat; Denies ear pain Cardiovascular Cardiovascular: Denies chest pain, orthopnea, palpitations, paroxysmal nocturnal dyspnea or racing heartbeat Respiratory/Chest Respiratory/Chest: Reports cough, dyspnea and dyspnea on exertion; Denies orthopnea, paroxysmal nocturnal dyspnea or sputum Gastrointestinal Gastrointestinal: Reports nausea and vomiting; Denies abdominal pain, constipation or melena Genitourinary Genitourinary ED: Denies dysuria, hematuria or urinary frequency Musculoskeletal Musculoskeletal: Reports arthralgias and myalgias; Denies back pain or neck pain Integumentary Denies abscess or rash Neurologic Neurologic: Reports headache(s); Denies paresthesias or weakness Psychiatric Psychiatric: Reports depression; Denies suicidal thoughts Endocrine Endocrinology: Denies polydipsia, polyphagia or polyuria Hematologic/Lymphatic Hematologic/Lymphatic: Denies easy bleeding or easy bruising EXAM Physical Exam Const Vital Signs: 04/06/21 18:21 04/06/21 18:56 Temperature 96.8 F L Temperature Source Temporal Pulse Rate 88 Respiratory Rate 16 Respiratory Effort Short of Breath Respiratory Depth Normal Respiratory Pattern Normal Blood Pressure 113/63 Blood Pressure Mean 79 Pulse Ox 95 Oxygen Delivery Method Room Air Positive well nourished, well developed and obese General Appearance ED: well developed and NAD; Negative for pallor Orientation / Consciousness: oriented to person, oriented to place and oriented to time Nutritional Appearance: obese HEENT Reports TM's clear and dry mucous membranes; Denies moist mucous membranes normocephalic and atraumatic Face and Sinus: Negative for sinuses nontender or sinus tenderness Nose: nasal discharge Tympanic Membrane ED: Yes TM's clear Mouth ED: Yes dry mucous membranes Mouth: dry mucous membranes Eyes PERRL and EOMs intact bilaterally Neck no lymphadenopathy, supple, no meningeal signs and no JVD Chest Wall inspection of chest normal and palpation of chest normal Resp normal respiratory effort and no retractions Auscultation: clear to auscultation bilaterally Cardio regular rate, regular rhythm, S1 normal heart sound, S2 normal heart sound and no murmurs GI non-tender, non-distended and no masses Auscultation: normoactive bowel sounds Palpation: soft no CVA tenderness Back/Spine no CVA tenderness Extremity normal to inspection and full ROM Neuro oriented x3 and CN's II-XII intact bilaterally Sensorium / Orientation: alert, oriented to person, oriented to place and oriented to time Psych mental status grossly normal Skin General Skin Exam: Negative for jaundice or pallor Lesions: no lesions Rashes: no rashes Trauma: no lacerations or abrasions MDM MDM MDM Narrative Medical decision making narrative: Patient has symptoms consistent with upper restaurant suction. With ill contacts and constellation of symptoms concern patient has COVID. Since he is hemodynamically stable not hypoxic and PERC negative no laboratory testing or chest x-ray was done. COVID test was obtained. He was given excuse for work for today and tomorrow. If his COVID test is positive note indicates that he will need to be off until the . Discharge Plan Triage Chief Complaint: Cold Sx ED Provider: Lucio Crowley Dx/Rx/DC Orders Clinical Impression: Upper respiratory infection with cough and congestion, Nausea vomiting and diarrhea, Encounter for screening laboratory testing for COVID-19 virus Instructions: Coronavirus Disease 2019 (COVID-19): Caring for Yourself or Others, ED URI, Viral, No Abx (Adult) Prescriptions: No Action bupropion HCl 150 mg tablet extended release 24 hr 150 mg PO DAILY RF: 0 prednisone 20 MG tablet 60 mg PO DAILY Qty: 15 RF: 0 hydrocodone-acetaminophen 5-325 mg tablet 1 tab PO Q4H PRN (Reason: pain) 3 Days Qty: 14 RF: 0 Stand Alone Forms: ED Work / School Excuse Primary Care Provider: Care Physician,No Primary Referrals: Jon Mota MD [STAFF PHYSICIAN] - 10-14 Days if not better Care Physician,No Primary [Primary Care Provider] - Disposition Disposition: Home, Self Care
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
== END 2021-04-06 19:31 | disposition home or self-care (01) ==
PROVIDERS: Emergency Provider Emergency Medicine; Visit Provider Emergency Medicine
DX: J06.9 Acute upper respiratory infection, unspecified (principal); F17.210 Nicotine dependence, cigarettes, uncomplicated; Z20.822 Contact with and (suspected) exposure to COVID-19; R19.7 Diarrhea, unspecified; E66.9 Obesity, unspecified; Z68.27 Body mass index [BMI] 27.0-27.9, adult
CPT/HCPCS: 87426; 99282

== ENCOUNTER 2021-07-12 08:59 | Observation (INO) | payer MEDICAID, SELFPAY ==
[2021-07-12] VITALS (17 sets, daily range): BP systolic 120–170; BP diastolic 63–128; PULSE 62–115; RESP 12–22; TEMP 36.2–37.2; O2SAT 94–100; BMI 32.3; BMI 28.1
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
[2021-07-12] MEDS: Ondansetron 4 MG/2 ML Vial IV (09:19)
[2021-07-12] MEDS: morphine 8 MG/ML Syringe IV (09:19)
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
[2021-07-12] MEDS: Cefazolin 1 GM/50 ML BAG IV ×2 (11:00→22:45)
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
--- NOTE | 2021-07-12 13:00 | EKG12_ITS ---
Test Reason : PRE OP Blood Pressure : / mmHG Vent. Rate : 069 BPM Atrial Rate : 069 BPM P-R Int : 130 ms QRS Dur : 092 ms QT Int : 378 ms P-R-T Axes : 009 077 054 degrees QTc Int : 405 ms Normal sinus rhythm Normal ECG Confirmed by PABLO MOURA, WANDER ([id number]), editorial intern CECILE ABRAMS ([id number]) on 07/17/2021 11:43:06 AM Referred By: Max Sesay Confirmed By:WANDER SHAH MD
[2021-07-12 13:22] LABS: Hematocrit 42.5 % (40-54); Hemoglobin 14.1 g/dL (13.0-16.5); Mean Corp Hgb Conc 33.2 g/dL (32-36); Mean Corpuscular Hgb 29.7 pg (27.0-32.0); Mean Corpuscular Volume 89.7 fL (80-94); Mean Platelet Vol. 9.3 fl (6.2-12.0); Platelet Count 282 K/mm3 (150-450); RBC Distribution Width CV 12.5 % (11.6-14.6); RBC Distribution Width SD 41.3 fl (35.1-43.9); Red Blood Count 4.74 M/mm3 (4.6-6.2)
[2021-07-12] MEDS: Lactated Ringers 1,000 ML 15 ML IV (13:33)
[2021-07-12 13:38] LABS: Anion Gap 8 (5-15); BUN 14 mg/dL (7-18); BUN/Creat Ratio 15.8 RATIO (10-20); Calcium,Total 8.5 mg/dL (8.5-10.1); Chloride 105 mmol/L (98-107); Creatinine, Serum 0.88 mg/dL (0.70-1.30); EST Glomerular Filtration Rate 113 mL/min (>60); Est Glom Filt Rate - Afr Amer 137 mL/min (>60); Estimated Creatinine Clearance 126.31 ml/min; Glucose 100 mg/dL (74-106); Potassium 3.6 mmol/L (3.5-5.1); Sodium Level 140 mmol/L (136-145)
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
--- NOTE | 2021-07-12 15:45 | RAD_ITS ---
STUDY: INTRAOPERATIVE FLUOROSCOPY TECHNIQUE: The examination was performed with referring physician in attendance. Under fluoroscopic observation, fluoroscopic images were obtained. Radiologist was not present for the study. Radiologist did not perform the procedure. This dictation is for documentation of the radiation dosage only. There is no interpretation of the images. TOTAL NUMBER OF IMAGES: 1 COMPARISON: None RADIATION DOSE: not provided mGy FLUOROSCOPY TIME: not provided seconds REASON FOR EXAM: FX REPAIR IN OR Male, 25 years old. FINDINGS: There is a metal sideplate transfixing the radius and ulna. There are cortical screws holding the plate in place. RAD/Forearm 2 Views IMPRESSION: Fluoroscopic assistance images were obtained. Dictation for documentation purposes only. Electronically Signed: Andres Breaux MD at 18:45 EDT ,
[2021-07-12] MEDS: Cefazolin 2 GM in 0.9% Normal Saline 100 ML IV (15:57)
--- NOTE | 2021-07-12 17:46 | PCM.OPRPT ---
Report of Operation Date of Procedure: 07/12/21 Pre-Operative Diagnosis: Right grade 1 both bone forearm fracture Post-Operative Diagnosis: Right grade 1 both bone forearm fracture Surgery/Procedure Performed:: Open reduction internal fixation radial and ulnar shaft fractures right forearm Description of Surgical Findings:: Stable well fixed fractures Surgeon: Max Sesay lift manager: Lamont Bautista Type of Anesthesia: General Anesthesiologist: Gt Holguin Special Medications: Ancef Estimated Blood Loss (mL): 15 Fluids Replaced: 1100 mL crystalloid Description of Procedure: On the date of the procedure patient was seen in consultation in the preoperative area. After full assessment the right upper extremity was marked and everyone agreed upon the procedure to be performed. Indications for surgery are noted in the history and physical. After I assessed the patient and anesthesia assessed the patient he was taken back to the operating room where he was anesthetized on his bed and transferred to the operating table in the supine position. Anesthesia assumed control of the C-spine and airway prior to anesthetization and remained to control until the patient was awakened. All bony prominences identified well-padded. Right upper extremity was placed on an armboard and tourniquet was placed in the right upper arm. The arm was scrubbed with chlorhexidine scrub brush and gently wiped free of debris. At this time the right upper extremity was prepped in a sterile fashion using Betadine prep while the surgeon respiratory care assistant scrub. Upon reentering the room the right upper extremity was draped in a standard repeat fashion and timeout was called everyone agreed upon the side, the site, the procedure to be performed, patient's identity and antibiotics given. After the timeout was called incisions were marked on the volar aspect of the wrist for the radial approach and over the ulnar border for the ulnar approach. Based on the fracture we knew we had to create a significantly distal ulna incision. Additionally we marked out an ellipse over the open area on the ulnar border of the forearm. Once was done Esmarch bandage used to exsanguinate the extremity and tourniquet was placed up to 250 mmHg. Our attention was first placed on the volar aspect of the wrist where the incision was taken down through skin and subtenons tissue. We then incised the fascia and retracted the FCR and FPL ulnarly. The forearm was placed in a pronated position and we carefully removed the pronator from the radial border of the radius enough to visualize and fix the fracture. As we got more proximal we did supinate the forearm and release the distal portion of the supinator from the proximal radius. It was a short oblique fracture and a clamp was placed on the fracture after irrigating out the wound and cleaning the bone and. After the clamp was placed live x-ray was used to verify fracture reduction in our attention was then turned towards the ulna. With the elbow flexed we incised the ulnar skin and carefully bluntly dissected down to the bone and fracture site. At the site of the puncture wound the wound was sharply debrided removing the necrotic skin edges from the puncture wound and debris in the subcutaneous tissue fascia and muscle. In all this amounted to 3 cm of ellipse of this tissue. There not appear to be any gross debris down to the bone. Once we got to this point we carefully irrigated out the wound using copious amounts of normal saline. We then directed our attention towards fixing the fracture. There were 2 main fragments with a oblique fracture. The oblique fracture was carefully reduced using pointed reduction clamps. Once were happy with our reduction we did get x-ray with live fluoroscopy and placed a 3.5 mm cancellous screw lag screw by technique. After we adequately reduced the fracture live x-ray was used to verify fracture reduction. We then turned our attention to placing lag screws in the fractures. Our attention was first directed towards the radius where a 3.5 mm plate was used to provisionally fix the fracture with 1 screw proximally and one screw distally. Once this was done we were able to use live fluoroscopy and see that we had lost fixation of the far cortex of our leg screw. We went back to the ulna and we reduced the fracture. After we reduced it adequately we used a 4.0 cancellous screw to rescue the lag screw we had previously used. This gave us adequate fixation. Once both fractures were provisionally fixed live x-ray was used to verify fracture reduction and our attention was directed towards the radius. We then directed our attention to the more proximal area and placed 2 additional screws in the provisional plate. Once we did this we went distally and placed a compression screw as this was a short oblique fracture which could not be lag screw. 1 additional screw was placed distally. Once this was done we directed our attention to the ulna. A 7 hole 2.7 mm LCDCP plate was selected. 1 screw was placed proximally and one screw was placed distally provisionally fixing the plate. Live x-ray was used to verify plate placement and fracture reduction. Once we are happy with this we placed 2 additional screws distally and 2 additional screws proximally. Once we had final fixation live x-ray was used to verify final fixation and plate placement as well as fracture reduction. Once this was done the volar wound was copiously irrigated out normal saline fascia was left unrepaired skin was closed with 2-0 Vicryl and 4-0 nylon. Once we are done here we turned our attention to the ulnar wound where skin was closed with 2-0 Vicryl and 4-0 nylon after copiously irrigating out the wound once more. Xeroform dressings were placed. Well-padded volar splint was placed. Compressive dressing was placed. Tourniquet was let down prior to this and patient did have good radial and ulnar pulses as well as warm pink digits. Patient was placed in a sling awakened by anesthesia and transferred to the [facility] and transferred the PACU for recovery. Postop plan. Patient be placed on 24 hours of antibiotics IV. We will monitor the patient overnight for development of compartment syndrome. As a part of the procedure the compartments were released however we did close skin. If patient does well tomorrow we will have him discharged home. He will be nonweightbearing for a total of 6 weeks. He will have a volar splint to be discontinued at postop visit 2 weeks from now as well as sutures. Complications No intraoperative complication Admit VTE Documentation VTE Present on Admission: No VTE Mechan Device Prophylaxis: SCD's VTE Pharm Prophylaxis ordered?: No Reason prophylaxis not ordered:: Procedure Not Indicated
[2021-07-12] MEDS: Lactated Ringers 1,000 ML 999 ML IV (17:55)
[2021-07-12] MEDS: Lactated Ringers 1,000 ML 125 ML IV (19:01)
--- NOTE | 2021-07-12 19:10 | RAD_ITS ---
STUDY: X-RAY XR Forearm 2 Views REASON FOR EXAM: Male, 25 years old. PAIN S/P ORIF RADIUS/ULNAR Fx -- in PACU TECHNIQUE: XR Forearm 2 Views COMPARISON: None. FINDINGS: Fine osseous detail is obscured by the overlying cast. There is a metal sideplate transfixing the radius. There are cortical screws holding the plate in place. There is a metal sideplate transfixing the ulna. There are cortical screws holding the plate in place. RAD/Forearm 2 Views IMPRESSION: Successful ORIF Electronically Signed: Andres Breaux MD at 19:33 EDT ,
--- NOTE | 2021-07-12 20:14 | PCM.PN.BLA ---
Progress Note Postop check: Overall patient doing well. Moving arm wiggling digits. Does have pain in the forearm at site of the fracture. Loosen splint for patient. Patient able to wiggle fingers. Digits are warm and pink with brisk cap refill. Sensations intact light touch R/M/U distally.
[2021-07-12] MEDS: Morphine 4 MG/ML Syringe IV (20:22)
[2021-07-12] MEDS: Acetaminophen 500 MG Tablet 1000 MG PO (21:10)
[2021-07-12] MEDS: Ketorolac 30 MG/ML Syringe IV (21:28)
[2021-07-12] MEDS: Senna/Docusate Sodium 1 Tablet 2 TABLET PO (21:28)
[2021-07-12] MEDS: oxyCODONE 5 MG Tablet PO (22:48)
[2021-07-13 00:03] VITALS: BP 123/55; PULSE 74; RESP 18; TEMP 36.8; O2SAT 96
[2021-07-13 03:57] VITALS: BP 116/75; PULSE 92; RESP 18; TEMP 36.6; O2SAT 100
[2021-07-13] MEDS: Acetaminophen 500 MG Tablet 1000 MG PO (04:03)
[2021-07-13] MEDS: oxyCODONE 5 MG Tablet PO (04:03)
[2021-07-13 04:28] LABS: Hematocrit 45.2 % (40-54); Hemoglobin 14.7 g/dL (13.0-16.5); Mean Corp Hgb Conc 32.5 g/dL (32-36); Mean Corpuscular Hgb 29.5 pg (27.0-32.0); Mean Corpuscular Volume 90.8 fL (80-94); Mean Platelet Vol. 9.8 fl (6.2-12.0); Platelet Count 279 K/mm3 (150-450); RBC Distribution Width CV 12.6 % (11.6-14.6); RBC Distribution Width SD 41.1 fl (35.1-43.9); Red Blood Count 4.98 M/mm3 (4.6-6.2)
[2021-07-13 04:56] LABS: Anion Gap 5 (5-15); BUN 8 mg/dL (7-18); BUN/Creat Ratio 9.6 RATIO (10-20); Calcium,Total 8.3 mg/dL (8.5-10.1); Chloride 104 mmol/L (98-107); Creatinine, Serum 0.83 mg/dL (0.70-1.30); EST Glomerular Filtration Rate 121 mL/min (>60); Est Glom Filt Rate - Afr Amer 146 mL/min (>60); Estimated Creatinine Clearance 133.92 ml/min; Glucose 106 mg/dL (74-106); Potassium 3.9 mmol/L (3.5-5.1); Sodium Level 136 mmol/L (136-145)
--- NOTE | 2021-07-13 06:52 | PN.ORTHO_ITS ---
Subjective Subjective The patient was sitting in bed upon examination. Patient denies any chest pain, shortness of breath, dizziness, lightheadedness, nausea or vomiting, or calf pain. Pain is controlled on medications. No adverse overnight events. Patient denies any numbness and tingling. Patient did take the Martin wrap off yesterday as it was too compressive. He does have pain in the forearm but it is controlled on medications. Objective Data Objective Data Vital Signs: Vital Signs Temp Pulse Resp BP Pulse Ox 97.9 F 92 18 116/75 100 07/13/21 03:57 07/13/21 03:57 07/13/21 03:57 07/13/21 03:57 07/13/21 03:57 Oxygen Flow Rate (L/min) [4] 2 Oxygen Flow Rate (L/min) [2] 2 Oxygen Flow Rate (L/min) 2 Oxygen Delivery Method [4] Nasal Cannula Oxygen Delivery Method [2] Room Air Oxygen Delivery Method [1 ( Room Air Initial Baseline)] Oxygen Delivery Method Room Air Weight: 83.915 kg Body Mass Index (BMI) 28.1 Intake & Output: Intake and Output for Last 24 Hours 07/11/21 07/12/21 07/13/21 23:59 23:59 23:59 Intake Total 2678.75 / 2678.75 79.75 / 79.75 Balance 2678.75 / 2678.75 79.75 / 79.75 Lab / Micro Data Result Diagrams: 07/13/21 03:56 07/13/21 03:56 Labs: Laboratory Results - last 24 hr 07/12/21 13:15: WBC 13.0 H, RBC 4.74, Hgb 14.1, Hct 42.5, MCV 89.7, MCH 29.7, MCHC 33.2, RDW Std Deviation 41.3, RDW Coeff of Alphonse 12.5, Plt Count 282, MPV 9.3 07/12/21 13:15: Sodium 140, Potassium 3.6, Chloride 105, Carbon Dioxide 27.0, Anion Gap 8, BUN 14, Creatinine 0.88, Estim Creat Clear Calc 126.31, Est GFR (MDRD) Af Amer 137, Est GFR (MDRD) Non-Af 113, BUN/Creatinine Ratio 15.8, Glucose 100, Calcium 8.5 07/13/21 03:56: WBC 10.0, RBC 4.98, Hgb 14.7, Hct 45.2, MCV 90.8, MCH 29.5, MCHC 32.5, RDW Std Deviation 41.1, RDW Coeff of Alphonse 12.6, Plt Count 279, MPV 9.8 07/13/21 03:56: Sodium 136, Potassium 3.9, Chloride 104, Carbon Dioxide 27.0, Anion Gap 5, BUN 8, Creatinine 0.83, Estim Creat Clear Calc 133.92, Est GFR (MDRD) Af Amer 146, Est GFR (MDRD) Non-Af 121, BUN/Creatinine Ratio 9.6 L, Glucose 106, Calcium 8.3 L Micro: Microbiology 07/12/21 12:30 Nasal Secretion SARS-CoV-2 Antigen (Rapid) - Final Radiography Diagnostic Testing: Radiology Impression Forearm X-Ray 07/12/21 09:14 IMPRESSION: Acute laterally displaced and volarly angulated oblique fracture the midshaft of the radius and ulna. Electronically Signed: Barry Mcduffie MD at 10:08 EDT , Lumbar Spine X-Ray 07/12/21 09:14 IMPRESSION: Normal x-ray examination of the lumbar spine. Electronically Signed: Barry Mcduffie MD at 10:08 EDT , Forearm X-Ray 07/12/21 15:45 IMPRESSION: Fluoroscopic assistance images were obtained. Dictation for documentation purposes only. Electronically Signed: Andres Breaux MD at 18:45 EDT , Forearm X-Ray 07/12/21 19:10 IMPRESSION: Successful ORIF Electronically Signed: Andres Breaux MD at 19:33 EDT , Physical Exam Narrative Vital signs stable and afebrile. Patient's Martin wrap was taken off of the postoperative splint. Webril exposed. Martin wrap was loosely placed back over to protect Webril and splint. Patient tolerated it well. Patient's fingers are pink and warm. Capillary refills less than 2 seconds. Patient was able to flex his fingers down to the splint and have full extension. Sensation was intact to all fingers. Patient was able to make okay sign, cross fingers, and thumbs up Patient tolerated gentle range of motion of the right elbow Const alert, oriented x3 and no apparent distress Assessment & Plan Assessment/Plan (1) Open fracture of right radius and ulna: PLAN: 1. Status post right open both bone forearm fracture with open reduction internal fixation radial and ulnar shaft fractures POD#1 2. Continue pain medications: Currently on Tylenol and oxycodone. Pain medications are controlling patient's pain at this time 3. Continue with splint for 2 weeks postoperatively. Utilize sling for comfort. Patient will be nonweightbearing for 6 weeks postoperatively. 4. Antibiotics: Patient will be placed on doxycycline for 1 week postoperatively due to open fracture. Case was discussed with Dr. Fabio Sesay 5. Disposition: Patient appears to be doing well this morning. There is no evidence of any compartment syndrome. Patient's fingers are slightly swollen but are pink and warm. Capillary refills less than 2 seconds. He has no numbness and tingling. Patient is able to move his fingers with minimal discomfort. Plan will be for patient to follow-up with Dr. Fabio Sesay in approximately 12 days with repeat x-rays of the right forearm. Splint will be discontinued at 2-week postop visit and suture removal. Prescriptions will be E scribed to [facility]. Patient will be given following prescriptions: Tylenol, oxycodone, senna, and doxycycline. Patient was instructed to contact our office with any complications or concerns following discharge from the hospital. Was also advised to ice and elevate the right upper extremity. No lifting or use of the right upper extremity. I have reviewed the [place] Automated Rx Reporting System (OARRS) report for this patient for refill pattern and other prescriber involvement as part of the appropriate surveillance for the provision of acute and chronic controlled medi cations. The report was requested and reviewed on the date of this entry and was considered in the prescribing process.
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
[2021-07-13] MEDS: Cefazolin 1 GM/50 ML BAG IV (07:55)
[2021-07-13 10:00] VITALS: BP 124/78; PULSE 80; RESP 18; TEMP 36.8; O2SAT 100
[2021-07-13] MEDS: Senna/Docusate Sodium 1 Tablet 2 TABLET PO (11:04)
[2021-07-13 12:26] VITALS: BP 124/70; PULSE 70; RESP 18; TEMP 37; O2SAT 98
== END 2021-07-13 12:27 | disposition home or self-care (01) ==
LOC: ED 12:10 → SDC 12:41 → AC 12:42 → MS3 17:42 → SDC 18:03 → MS3 18:03
PROVIDERS: Anesthesiology; Admitting Provider Specialist; Emergency Provider Emergency Medicine; Referring Provider Specialist; Visit Provider Specialist
PROC: (CPT 25575; principal; 2021-07-12 14:45)
DX: S52.331B Displaced oblique fracture of shaft of right radius, initial encounter for open fracture type I or II (principal); F15.11 Other stimulant abuse, in remission; Y92.410 Unspecified street and highway as the place of occurrence of the external cause; F17.210 Nicotine dependence, cigarettes, uncomplicated; V89.2XXA Person injured in unspecified motor-vehicle accident, traffic, initial encounter; S39.012A Strain of muscle, fascia and tendon of lower back, initial encounter; R51.9 Headache, unspecified; Y93.89 Activity, other specified; Y99.9 Unspecified external cause status; S52.232B Displaced oblique fracture of shaft of left ulna, initial encounter for open fracture type I or II
CPT/HCPCS: 25575; 29105; 01830; 72100; 73090; 76000; 80048; 85027; 87811; 90471; 93005; 96361; 96365; 96366; 96375; 96376; 99218; 99251; 99285; C1713; J7120; G0378; G0463; J2405